=== PATIENT | male | born 1950 | race Two or more races ===

== ENCOUNTER 2019-10-14 06:48 | Inpatient (IN) | payer MEDICARE ==
[2019-10-14] VITALS (14 sets, daily range): BP systolic 87–124; BP diastolic 59–89
[~2019-10-14] VITALS: Ht 162.6 cm; Wt 66.8 kg
[~2019-10-14 06:48] MED LIST: ASPI325T11 PO; ATOR40TA59 PO; CLOP75TA PO; LISI-338 PO; METO25TA4 PO; NITR0.4T24 SL
[2019-10-14] MEDS ORDERED: LIDOCAINE 1% PF 2 ML VIAL. ONE (07:32)
[2019-10-14] MEDS ORDERED: IODIXANOL 320 MG/ML 100 ML VIAL. ONE (07:32)
[2019-10-14 07:37] LABS: HEMATOCRIT 37.7 % (39.0-53.0); HEMOGLOBIN 12.5 g/dL (13.0-17.5); RED BLOOD COUNT 4.16 x10^6/uL (4.30-5.70); RED CELL DISTRIBUTION WIDTH 13.3 % (11.5-14.5); WHITE BLOOD COUNT 11.2 x10^3/uL (4.0-11.0)
[2019-10-14] MEDS ORDERED: IPRATRPIUM/ALBUTEROL 0.5/2.5MG 3 ML NEBU. NEB ONE (07:45)
[2019-10-14 07:48] LABS: CALCIUM 8.3 mg/dL (8.5-10.1); CREATININE 0.8 mg/dL (0.7-1.3); GFR 95.8; POTASSIUM 4.1 mmol/L (3.5-5.1); PROTHROMBIN TIME PATIENT 13.7 SEC (11.7-14.0)
[2019-10-14] MEDS ORDERED: HEPARIN for IV BOLUS 10,000 UNIT/10 ML VIAL. ONE (07:57)
[2019-10-14] MEDS ORDERED: NITROGLYCERIN 200 MCG/2 ML SYRINGE FOR CATH/VASC LAB. ONE (07:57)
[2019-10-14] MEDS ORDERED: VERAPAMIL 5 MG/2 ML VIAL. ONE (07:57)
[2019-10-14] MEDS ORDERED: fentaNYL PF VIAL 100 MCG/2 ML VIAL ONE (07:57)
[2019-10-14] MEDS ORDERED: MIDAZOLAM HCL/PF 2 MG/2 ML VIAL. ONE (07:57)
[2019-10-14] MEDS ORDERED: NITROGLYCERIN 200 MCG/2 ML SYRINGE FOR CATH/VASC LAB. IART ONE (08:00)
[2019-10-14] MEDS ORDERED: MIDAZOLAM HCL/PF 2 MG/2 ML VIAL. IV ONE (08:00)
[2019-10-14] MEDS ORDERED: IODIXANOL 320 MG/ML 100 ML VIAL. IART ONE (08:00)
[2019-10-14] MEDS ORDERED: VERAPAMIL 5 MG/2 ML VIAL. IART ONE (08:00)
[2019-10-14] MEDS ORDERED: LIDOCAINE 1% PF 2 ML VIAL. INJ ONE (08:00)
[2019-10-14] MEDS ORDERED: fentaNYL PF VIAL 100 MCG/2 ML VIAL IV ONE (08:00)
[2019-10-14] MEDS ORDERED: HEPARIN for IV BOLUS 10,000 UNIT/10 ML VIAL. IART ONE (08:00)
[2019-10-14] MEDS ORDERED: CONTRAST GIVEN. MC PRN (08:15)
[2019-10-14] MEDS ORDERED: BIVALIRUDIN 250 MG VIAL. IV ONE ×2 (08:50→09:15)
[2019-10-14] MEDS: IV 1/2 NORMAL SALINE 1,000 ML IV SCH ×2 (09:39→19:39)
--- NOTE | 2019-10-14 09:39 | PDOC ---
MODERATE SEDATION ASSESSMENT RISKS/ALTERNATIVES Risks/Alternatives Risks and alternatives of this type of sedation and procedure discussed with: RISK/ALTERNATIVES: Patient H & P ON CHART H & P H & P on chart and reviewed for co-morbid conditions and appropriate labs. H&P ON CHART: Yes STATUS PREG STATUS ASSESSED: N/A MEDS/ALLERGIES REVIEWED Meds/Allergies Reviewed Medications and Allergies including time and route of recently administered narcotics and sedatives. MEDS/ALLERGIES REVIEWED: Yes ASA RATING ASA RATING: III AIRWAY ASSESSMENT Airway Assessment Airway patency, oral function limitations, presence of caps, crowns, dentures, partials, and ability to extend neck assessed. AIRWAY ASSESSMENT: Yes MALLAMPATI SCORE MALLAMPATI SCORE: II PRE-SEDATION ASSESSMENT PRE-SEDATION ASSESSMENT: Yes FAISAL DOWNS MD Oct 14, 2019 09:38
--- NOTE | 2019-10-14 09:52 | CARD ---
MR#: [id number] Date of Study: 10/14/2019 Ordering Physician: FAISAL EMANUEL, Referring Physician: FAISAL EMANUEL Tech: Miley No APPROVED REPORT Technologist: Miley No Nurse: Thea Winters RN Procedure(s) performed: Selective coronary angiography, successful PCI/drug eluting stents placement to the left circumflex and right coronary arteries fl time: 14.7 mins dose: 73 gy/cm2 contrast: 111 ml moderate sedation: 60 MINS INDICATION The indication(s) include : unstable angina , 69-year-old male recently underwent PCI/JAMAL to LAD in t he setting of acute anterior wall ST elevation myocardial infarction. He presented today for staged P CI/stents placement to left circumflex and right coronary arteries.. [facility] Clinical Frailty Scale [facility] Clinical Frailty Scale: Moderately Frail Heart Failure Heart Failure: No PROCEDURE NARRATIVE After explaining the risks, benefits and alternative options, informed consent was obtained from miky ent. Patient was brought to the cardiac Manager [facility] and his right wrist was prepped and draped in the us ual fashion after confirming a positive modified Filiberto's test. Arterial access was obtained in the located within [facility] radial artery and 6 Indonesian sheath was inserted. 6 Indonesian XB 3.5 guide catheter was used to engage the left main coronary artery and selective angiography was performed that confirmed the previously described 80% stenosis involving the mid segment of the left circumflex artery. This was crossed wit h a 0.014 inch FreedomPop Pro water guidewire and predilated with a 3.0 x 15 mm trek balloon. Subsequently , this was treated with a 3.0 x 22 mm resolute mely drug-eluting stent. Follow-up angiography showed resolution of the stenosis to 0% with DAKOTA-3 distal flow. Following this, the right coronary artery was engaged with a 6 Indonesian JR4 guide catheter and selectiv e angiography was performed that confirmed the previously described 80% stenosis involving the mid to distal segment of the right coronary artery. This was predilated with a 3.0 x 15 mm trek balloon and treated successfully with a 3.5 x 38 mm resolute mely drug-eluting stent. Follow-up angiorrhaphy oleg wed resolution of the stenosis to 0% with DAKOTA-3 distal flow. Patient tolerated the procedure well. H emostasis was achieved using TR band. There were no immediate complications DAKOTA Flow DAKOTA Flow (Pre-Intervention): DAKOTA-3 DAKOTA Flow (Post-Intervention): DAKOTA-3 Conclusion Successful PCI/drug eluting stents placement to the right coronary and left circumflex arteries. Recommendations 1. Aspirin 325 mg daily for one month followed by 81 mg daily 2. Plavix 75 mg daily for preferably one year 3. Cardiovascular risk factor modification 4. Cardiac rehabilitation referral Signed by : Faisal Emanuel, Electronically Approved : 10/14/2019 09:52:09
--- NOTE | 2019-10-14 11:58 | CONS ---
DATE OF CONSULTATION: 10/14/2019 ATTENDING PHYSICIAN: Dr. Emanuel. REASON FOR CONSULTATION: Hypoxia. HISTORY OF PRESENT ILLNESS: The patient is a 69-year-old who was hospitalized for a left heart catheterization on 09/27/2019. He had 3-vessel coronary artery disease. He had elevated left ventricular end-diastolic pressure of 40 from acute diastolic heart failure. The patient at that time also had a stent to LAD and was subsequently discharged. He was then readmitted today with 2 more stents that was performed on RCA and left circumflex. He was noted to be dyspneic during the procedure requiring 2 liters of oxygen. His chest x-ray from 09/27/2019 showed diffuse congestive heart failure. He has not had any followup x-ray since then. He does not speak Lithuanian. He does have a reported history of 30 plus tobacco use. Denies any chest pain at present. No cough. PAST MEDICAL HISTORY: History of 3-vessel coronary artery disease, history of diastolic heart failure. PAST SURGICAL HISTORY: Including left heart catheterization with 3-vessel coronary artery disease status post 3 stents. REVIEW OF SYSTEMS: Unable to obtain from the patient due to language barrier. ALLERGIES: None. MEDICATIONS: Reviewed as listed in the MRAD. SOCIAL HISTORY: Smoked for 30 years. PHYSICAL EXAMINATION: VITAL SIGNS: Reviewed. Blood pressure 104/74, afebrile, pulse ox 96% on 2 liters. NECK: Supple. LUNGS: With crackles at the bases. CARDIOVASCULAR: With a regular rate. ABDOMEN: Soft, nontender. EXTREMITIES: With no pitting edema. LABORATORY DATA: Reviewed. BUN and creatinine 15 and 0.8. IMPRESSION: 1. Acute hypoxic respiratory failure secondary to acute on chronic diastolic heart failure. 2. The patient with 3-vessel coronary artery disease, status post stent initially to LAD on 09/27/2019 and now stent placed to RCA and circumflex. 3. Mild cardiomyopathy with an EF of 45%. 4. Possible chronic obstructive pulmonary disease. 5. Abnormal chest x-ray on 09/27/2019 consistent with congestive heart failure. RECOMMENDATIONS: 1. Discussed with the nurse. Continue present oxygen. 2. We will obtain a stat chest x-ray. 3. The patient will need diuresis. 4. I have ordered him to discontinue IV fluids. 5. Follow Cardiology recommendation. 6. Discussed with RN and the patient's . JOSE BEATTY MD DR: Cathy JOB#: [id number] / [id number]
[2019-10-14] MEDS ORDERED: FUROSEMIDE 20 MG/2 ML VIAL. IVP ONE (12:00)
--- NOTE | 2019-10-14 12:00 | NUR ---
Admission: Patient speaks Estonian. Son Saman at bedside at time of admission and did all translating. Saman is fluent in Estonian and Vietnamese. Son translated for patient. Reviewing all home medications, admission questions, orienting patient to the room. Also reviewed cardiac cath precautions, bleeding risk and TR band. Patient son, patient and verbalized understanding. Additional people who can translate for patient. Jaime [phone] Pastor Ornelas [phone] [facility] wafer production lead worker Asha Dorseyg [phone]
--- NOTE | 2019-10-14 12:23 | RAD ---
Portable chest x-ray compared to similar exam dated 09/27/2019 for CHF, shortness of air. FINDINGS: There are bilateral apical airspace infiltrates, much worse on the right than the left. This is on a background of fine reticulonodular interstitial thickening diffusely. More focal consolidation the right medial lung base which appears right heart border and may reflect atelectasis or pneumonic infiltrate. No pleural effusions. IMPRESSION: 1. New biapical infiltrates, right greater than left, on a background of coarse chronic interstitial changes. Findings are concerning for acute infection superimposed on chronic fibrotic interstitial lung disease. 2. New dense consolidation in the right medial lobe, atelectasis versus pneumonic infiltrate. Electronically signed by: Dima Hunt MD (10/14/2019 12:21 PM) [id number]
[2019-10-14] MEDS ORDERED: PIP/TAZO PER PHARMACY MC PRN (12:45)
[2019-10-14] MEDS: PIPERACILLIN/TAZOBACTAM 4.5 GM in IV NORMAL SALINE 100ML 100 ML IV SCH ×3 (13:18→23:36)
--- NOTE | 2019-10-14 16:00 | NUR ---
TR band: Upon transfer from manager cath lab some blood under TR band 2mls added by manager cath lab nurse. No additional bleeding noted. All air removed by 1320. TR band removed at 1600. Arm board in place. Patient verbalized understanding of bleeding precautions.
[2019-10-14] MEDS: IPRATRPIUM/ALBUTEROL 0.5/2.5MG 3 ML NEBU. NEB SCH ×2 (17:37→20:00)
[2019-10-14] MEDS: ATORVASTATIN CALCIUM 40 MG TABLET. PO SCH (20:56)
[2019-10-14] MEDS: METOPROLOL TART IMMED RELEASE 25 MG TABLET. PO SCH (22:52)
[2019-10-15 02:40] VITALS: BP 76/52
[2019-10-15] MEDS: PIPERACILLIN/TAZOBACTAM 4.5 GM in IV NORMAL SALINE 100ML 100 ML IV SCH ×4 (05:58→23:50)
[2019-10-15 07:00] VITALS: BP 91/55
[2019-10-15] MEDS: IPRATRPIUM/ALBUTEROL 0.5/2.5MG 3 ML NEBU. NEB SCH ×4 (07:17→20:09)
[2019-10-15] MEDS: ASPIRIN ENTERIC COATED 325 MG TABLET.DR. PO SCH (08:54)
[2019-10-15] MEDS: CLOPIDOGREL BISULFATE 75 MG TABLET PO SCH (08:54)
[2019-10-15] MEDS: METOPROLOL TART IMMED RELEASE 25 MG TABLET. PO SCH ×2 (08:55→20:19)
[2019-10-15 10:52] VITALS: BP 90/69
--- NOTE | 2019-10-15 11:27 | RAD ---
PORTABLE CHEST 1V 10/15/2019 5:00 AM INDICATION: Shortness of air, pneumonia COMPARISON: 10/14/2019 TECHNIQUE: Portable frontal view of the chest is provided. FINDINGS: The cardiomediastinal silhouette is similar in appearance. Similar interstitial and alveolar airspace disease in the right upper lobe. Diffuse interstitial changes appears similar. No new airspace consolidation. There are no significant pleural effusions. There is no pulmonary vascular congestion. No pneumothorax. IMPRESSION: Aeration of the lungs appears similar to the prior examination. Electronically signed by: Charo Mejia MD (10/15/2019 11:24 AM) [id number]
--- NOTE | 2019-10-15 11:32 | PDOC ---
MOE COLINDRES LIBRARY ASSISTANT 10/15/19 1132: CARDIO Progress Notes Date and Time Date of Service 10/15/2019 Time of Evaluation 1100 Subjective Subjective: No Chest Pain, No shortness of breath, No Palpitations Vitals Vitals Vital Signs Date Time Temp Pulse Resp B/P (MAP) Pulse Ox O2 Delivery O2 Flow Rate FiO2 10/15/19 11:01 98 Nasal Cannula 2.0 10/15/19 10:52 97.5 90 24 90/69 (76) 97.5 Weight Weight [ ] Input and Output Intake and Output Intake and Output 10/15/19 07:00 Intake Total 400 ml Output Total 900 ml Balance -500 ml Intake Oral 400 ml Output Urine Total 900 ml Physical Exam HEENT: Neck Supple W Full Motion Chest: Symmetric LUNGS: Other (diminished bases) Heart: S1S2, RRR (SR) Abdomen: Soft N/T Extremities: No Calf Tenderness Neurology: alert, oriented, follow commands Other Exams right wrist arteriotomy site intact, no erythema or swelling, neurovascular status to right hand intact Assessment Assessment 1. 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 This time in for staged PCI/JAMAL to LCx/RCA as planned, stable 2. Mild acute systolic CHF: EF noted at 45%, appears compensated. lasix received yesterday 3. Possible aspiration: Infiltrates per CXR, notable for significant n/v post his STEMI at home per son. 4. Tobaccoism with likely COPD 5. HTN: BP marginally low currently 6. HLP 7. Mild valvular insufficiency: AI, TR/MR Recommendations 1. May hold metoprolol per BP trend. He will need ACEi as well moving forward if BP trend is adequate. Continue statin 2. Cardiac rehab 3. ECASA 325 for 1 month then 81 mg thereafter. Plavix. 4. Smoking cessation. Discussed treatment plan with son relaying to pt as his language is Luxembourger 5. Appreciate pulmonary input, antibiotic regimen per Dr. Solorio 6. Will transfer primary care to hospitalist group. BMP, Mg today 7. Follow up with Dr. Downs on 11/27 at 2 PM FAISAL DOWNS MD 10/15/19 1518: CARDIO Progress Notes Assessment Assessment Patient seen and examined. Agree with LAW INSTRUCTOR's assessment and plan. s/p PCI/JAMAL to LCx/RCA, stable and chest pain-free Appreciate pulmonary input - continue current management for possible aspiration pneumonia per the recommendations Follow-up with our office as scheduled MOE COLINDRES APRN Oct 15, 2019 11:32 FAISAL DOWNS MD Oct 15, 2019 15:18
--- NOTE | 2019-10-15 12:15 | NUR ---
SS following for discharge planning. SS reviewed pt chart. Pt is from home with spouse and is currently requiring oxygen. SS will continue to follow for discharge planning.
--- NOTE | 2019-10-15 12:27 | PDOC ---
PULMONARY PROGRESS NOTES Subjective better less SOA Vitals Vital Signs Date Time Temp Pulse Resp B/P (MAP) Pulse Ox O2 Delivery O2 Flow Rate FiO2 10/15/19 11:01 98 Nasal Cannula 2.0 10/15/19 10:52 97.5 90 24 90/69 (76) 97.5 General: Alert, No acute distress Lungs: Clear Cardiovascular: S1 Abdomen: Soft Neuro Exam: Alert Extremities: No Edema Skin: Warm Labs Laboratory Tests Test 10/14/19 07:21 White Blood Count 11.2 x10^3/uL (4.0-11.0) Red Blood Count 4.16 x10^6/uL (4.30-5.70) Hemoglobin 12.5 g/dL (13.0-17.5) Hematocrit 37.7 % (39.0-53.0) Mean Corpuscular Volume 91 fL (79-100) Mean Corpuscular Hemoglobin 30 pg (25-35) Mean Corpuscular Hemoglobin Concent 33 g/dL (31-37) Red Cell Distribution Width 13.3 % (11.5-14.5) Platelet Count 286 x10^3/uL (140-400) Prothrombin Time 13.7 SEC (11.7-14.0) Prothromb Time International Ratio 1.1 (0.8-1.1) Activated Partial Thromboplast Time 34 SEC (24-38) Sodium Level 142 mmol/L (136-145) Potassium Level 4.1 mmol/L (3.5-5.1) Chloride Level 105 mmol/L (98-107) Carbon Dioxide Level 25 mmol/L (21-32) Anion Gap 12 (6-14) Blood Urea Nitrogen 15 mg/dL (8-26) Creatinine 0.8 mg/dL (0.7-1.3) Estimated GFR (Cockcroft-Gault) 95.8 Glucose Level 120 mg/dL (70-99) Calcium Level 8.3 mg/dL (8.5-10.1) Medications Active Scripts Medications Dose Route/Sig Max Daily Dose Days Date Category Metoprolol Tartrate 25 Mg Tablet 12.5 Mg PO BID 09/28/19 Rx Aspirin Ec (Aspirin) 325 Mg Tablet.dr 325 Mg PO DAILYWBKFT 09/28/19 Rx Atorvastatin Calcium 40 Mg Tablet 40 Mg PO QHS 12/7/19 Rx Nitrostat (Nitroglycerin) 0.4 Mg Tab.subl 0.4 Mg SL PRN Q5MIN PRN 09/28/19 Rx Clopidogrel (Clopidogrel Bisulfate) 75 Mg Tablet 75 Mg PO DAILYWBKFT 09/28/19 Rx Impression . 1. Acute hypoxic respiratory failure secondary to acute on chronic diastolic heart failure and suspect RUL aspiration pneumonia 2. The patient with 3-vessel coronary artery disease, status post stent initially to LAD on 09/27/2019 and now stent placed to RCA and circumflex. 3. Mild cardiomyopathy with an EF of 45%. 4. Possible chronic obstructive pulmonary disease. 5. Abnormal chest x-ray Plan . 1. Discussed with the nurse. Continue present oxygen. 2. We will obtain ct chest , cxr with no change 3. diuresis. 4. Zosyn 5. Follow Cardiology recommendation. 6. Discussed with RN and the patient's . JOSE BEATTY MD Oct 15, 2019 12:26
--- NOTE | 2019-10-15 12:36 | PDOC ---
PROGRESS NOTES History of Present Illness History of Present Illness impression Assessment 1. 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 This time in for staged PCI/JAMAL to LCx/RCA as planned, stable 2. Mild acute systolic CHF: EF noted at 45%, 3. Possible aspiration: Infiltrates per CXR, notable for significant n/v post his STEMI at home per son. 4. Tobaccoism with likely COPD, stopped Moderate to large right pleural effusion and tiny left pleural effusion along with pulmonary interstitial edema. Bilateral multilobar pulmonary opacities are present. Given the presence of interstitial edema, these opacities most likely represent pulmonary alveolar edema. Superimposed multilobar pneumonia is not excluded. Follow-up CT imaging in 3 months is advised per Fleischner guidelines to document that these opacities resolve over time to exclude the possibility of an underlying opacity from nonmasslike malignancy or pneumonitis.. Mediastinal and hilar adenopathy. 5. HTN: BP marginally low currently 6. HLP 7. Mild valvular insufficiency: AI, TR/MR plan admit 1. metoprolol per BP trend. He will need ACEi as well moving forward if BP trend is adequate. Continue statin 2. Cardiac rehab 3. ECASA 325 for 1 month then 81 mg thereafter. Plavix. 4. Smoking cessation. Discussed permanent 5. pulmonary input, antibiotic regimen per evgeny Sequeira 6. transfer to hospitalist group. from cards today BMP, Mg today 7. Follow up with Dr. Emanuel on 11/27 at 2 PM 37 min pt exam, chart review, > 50% of time spent with exam, chart review, pt care coordination Vitals Vitals Vital Signs Date Time Temp Pulse Resp B/P (MAP) Pulse Ox O2 Delivery O2 Flow Rate FiO2 10/15/19 11:01 98 Nasal Cannula 2.0 10/15/19 10:52 97.5 90 24 90/69 (76) 97.5 Physical Exam General: Alert, Oriented X3, Cooperative, No acute distress Heart: Regular rate Lungs: Clear, Crackles Abdomen: Normal bowel sounds, Soft, No tenderness, No hepatosplenomegaly Extremities: No clubbing, No cyanosis, No edema Labs [facility]S [facility]: [id number] : 1950 LOCATION: [facility] AGE: 69 SEX: M EXAM STATUS: ADM IN ORD. PHYSICIAN: JOSE BEATTY MD REASON: chf vs pna, SHORT OF AIR PROCEDURE: CT CHEST WO CONTRAST CT chest without contrast PQRS statement: CT scans at this facility use dose reduction including either automated exposure control, iterative reconstructions, and /or weight based radiation dosing via mA and kV modification when appropriate to reduce radiation dose to as low as reasonably achievable. HISTORY: Congestive heart failure, pneumonia, shortness of breath. COMPARISON: Chest x-ray October 15, 2019. FINDINGS: Ectasia ascending thoracic aorta diameter 3.8 cm. Mild cardiomegaly. Extensive bilateral coronary calcified plaque, and presumed density from coronary stents as well. Pulmonary vessels and esophagus are unremarkable. There is mediastinal adenopathy largest distal paratracheal lymph node measures 2.1 x 1.6 cm. There is fullness of the hitesh could be due to a combination of prominent pulmonary vessels as well as mild enlarged hilar lymph nodes, characterization limited by absence of contrast. Tiny subcentimeter dependent left pleural effusion. There is a moderate to large right pleural effusion with an AP thickness of 6.3 cm. There is smooth paraseptal interstitial thickening typical of interstitial edema bilaterally. There are also bilateral multilobar opacities with a crazy paving pattern the largest and densest of which is at the right upper lobe but with scattered bilateral upper and lower lung zone opacities present. Bones are unremarkable. IMPRESSION: 1. Moderate to large right pleural effusion and tiny left pleural effusion along with pulmonary interstitial edema. 2. Bilateral multilobar pulmonary opacities are present. Given the presence of interstitial edema, these opacities most likely represent pulmonary alveolar edema. Superimposed multilobar pneumonia is not excluded. Follow-up CT imaging in 3 months is advised per Fleischner guidelines to document that these opacities resolve over time to exclude the possibility of an underlying opacity from nonmasslike malignancy or pneumonitis. 3. Mediastinal and hilar adenopathy. Electronically signed by: Nav Sal MD (10/15/2019 2:56 PM) [id number] Comment Review of Relevant I have reviewed the following items bailee (where applicable) has been applied. Labs Laboratory Tests Test 10/14/19 07:21 White Blood Count 11.2 x10^3/uL (4.0-11.0) Red Blood Count 4.16 x10^6/uL (4.30-5.70) Hemoglobin 12.5 g/dL (13.0-17.5) Hematocrit 37.7 % (39.0-53.0) Mean Corpuscular Volume 91 fL (79-100) Mean Corpuscular Hemoglobin 30 pg (25-35) Mean Corpuscular Hemoglobin Concent 33 g/dL (31-37) Red Cell Distribution Width 13.3 % (11.5-14.5) Platelet Count 286 x10^3/uL (140-400) Prothrombin Time 13.7 SEC (11.7-14.0) Prothromb Time International Ratio 1.1 (0.8-1.1) Activated Partial Thromboplast Time 34 SEC (24-38) Sodium Level 142 mmol/L (136-145) Potassium Level 4.1 mmol/L (3.5-5.1) Chloride Level 105 mmol/L (98-107) Carbon Dioxide Level 25 mmol/L (21-32) Anion Gap 12 (6-14) Blood Urea Nitrogen 15 mg/dL (8-26) Creatinine 0.8 mg/dL (0.7-1.3) Estimated GFR (Cockcroft-Gault) 95.8 Glucose Level 120 mg/dL (70-99) Calcium Level 8.3 mg/dL (8.5-10.1) Medications Current Medications Iodixanol (Visipaque 320) 100 ml STK-MED ONCE .ROUTE ; Start 10/14/19 at 07:32; Stop 10/14/19 at 07:32; Status DC Heparin Sodium/ Sodium Chloride 1,000 ml @ As Directed STK-MED ONCE .ROUTE ; Start 10/14/19 at 07:32; Stop 10/14/19 at 07:33; Status DC Lidocaine HCl (Xylocaine-Mpf 1% 2ml Vial) 2 ml STK-MED ONCE .ROUTE ; Start 10/14/19 at 07:32; Stop 10/14/19 at 07:33; Status DC Albuterol/ Ipratropium (Duoneb) 3 ml 1X ONCE NEB Last administered on 10/14/19at 08:06; Start 10/14/19 at 07:45; Stop 10/14/19 at 07:47; Status DC Fentanyl Citrate (Fentanyl 2ml Vial) 100 mcg STK-MED ONCE .ROUTE ; Start 10/14/19 at 07:57; Stop 10/14/19 at 07:57; Status DC Midazolam HCl (Versed) 2 mg STK-MED ONCE .ROUTE ; Start 10/14/19 at 07:57; Stop 10/14/19 at 07:58; Status DC Heparin Sodium (Porcine) (Heparin Sodium) 10,000 unit STK-MED ONCE .ROUTE ; Start 10/14/19 at 07:57; Stop 10/14/19 at 07:58; Status DC Verapamil HCl (Verapamil) 5 mg STK-MED ONCE .ROUTE ; Start 10/14/19 at 07:57; Stop 10/14/19 at 07:58; Status DC Nitroglycerin (Nitroglycerin) 200 mcg STK-MED ONCE .ROUTE ; Start 10/14/19 at 07:57; Stop 10/14/19 at 07:58; Status DC Nitroglycerin (Nitroglycerin) 200 mcg 1X ONCE IART Last administered on 10/14/19at 08:00; Start 10/14/19 at 08:00; Stop 10/14/19 at 08:03; Status DC Verapamil HCl (Verapamil) 2.5 mg 1X ONCE IART Last administered on 10/14/19at 08:47; Start 10/14/19 at 08:00; Stop 10/14/19 at 08:03; Status DC Heparin Sodium (Porcine) (Heparin Sodium) 2,500 unit 1X ONCE IART Last administered on 10/14/19at 08:00; Start 10/14/19 at 08:00; Stop 10/14/19 at 08:03; Status DC Heparin Sodium/ Sodium Chloride (HEPARIN for ARTERIAL LINE FLUSH) 1,000 unit 1X ONCE IART Last administered on 10/14/19at 08:00; Start 10/14/19 at 08:00; Stop 10/14/19 at 08:03; Status DC Heparin Sodium/ Sodium Chloride (HEPARIN for ARTERIAL LINE FLUSH) 1,000 unit 1X ONCE IART Last administered on 10/14/19at 08:00; Start 10/14/19 at 08:00; Stop 10/14/19 at 08:03; Status DC Midazolam HCl (Versed) 2 mg 1X ONCE IV Last administered on 10/14/19at 08:00; Start 10/14/19 at 08:00; Stop 10/14/19 at 08:03; Status DC Fentanyl Citrate (Fentanyl 2ml Vial) 100 mcg 1X ONCE IV Last administered on 10/14/19at 08:00; Start 10/14/19 at 08:00; Stop 10/14/19 at 08:03; Status DC Iodixanol (Visipaque 320) 100 ml 1X ONCE IART Last administered on 10/14/19 08:00; Start 10/14/19 at 08:00; Stop 10/14/19 at 08:03; Status DC Lidocaine HCl (Xylocaine-Mpf 1% 2ml Vial) 2 ml 1X ONCE INJ Last administered on 10/14/19 08:47; Start 10/14/19 at 08:00; Stop 10/14/19 at 08:03; Status DC Info (CONTRAST GIVEN -- Rx MONITORING) 1 each PRN DAILY PRN MC SEE COMMENTS; Start 10/14/19 at 08:15; Stop 10/16/19 at 08:14 Bivalirudin (Angiomax) 250 mg STK-MED ONCE IV ; Start 10/14/19 at 08:50; Stop 10/14/19 at 08:50; Status DC Bivalirudin (Angiomax) 250 mg 1X ONCE IV Last administered on 10/14/19at 09:09; Start 10/14/19 at 09:15; Stop 10/14/19 at 09:16; Status DC Sodium Chloride 1,000 ml @ 100 mls/hr Q10H IV ; Start 10/14/19 at 09:39; Stop 10/15/19 at 05:46; Status DC Aspirin (Ecotrin) 325 mg DAILYWBKFT PO Last administered on 10/15/19 08:54; Start 10/15/19 at 08:00 Clopidogrel Bisulfate (Plavix) 75 mg DAILYWBKFT PO Last administered on 10/15/19 08:54; Start 10/15/19 at 08:00 Atorvastatin Calcium (Lipitor) 40 mg QHS PO Last administered on 10/14/19at 20:56; Start 10/14/19 at 21:00 Metoprolol Tartrate (Lopressor) 12.5 mg BID PO Last administered on 10/15/19 08:55; Start 10/14/19 at 21:00 Furosemide (Lasix) 20 mg 1X ONCE IVP Last administered on 10/14/19at 12:14; Start 10/14/19 at 12:00; Stop 10/14/19 at 12:01; Status DC Piperacillin Sod/ Tazobactam Sod (Zosyn Per Pharmacy) 1 each PRN DAILY PRN MC SEE COMMENTS; Start 10/14/19 at 12:45 Piperacillin Sod/ Tazobactam Sod 4.5 gm/Sodium Chloride 100 ml @ 200 mls/hr Q6HRS IV Last administered on 10/15/19at 12:29; Start 10/14/19 at 13:00 Albuterol/ Ipratropium (Duoneb) 3 ml RTQID NEB Last administered on 10/15/19at 11:00; Start 10/14/19 at 16:15 Lactobacillus Rhamnosus (Culturelle) 1 cap BID PO ; Start 10/15/19 at 21:00 Active Scripts Active Metoprolol Tartrate 25 Mg Tablet 12.5 Mg PO BID Aspirin Ec (Aspirin) 325 Mg Tablet.dr 325 Mg PO DAILYWBKFT Atorvastatin Calcium 40 Mg Tablet 40 Mg PO QHS Nitrostat (Nitroglycerin) 0.4 Mg Tab.subl 0.4 Mg SL PRN Q5MIN PRN Clopidogrel (Clopidogrel Bisulfate) 75 Mg Tablet 75 Mg PO DAILYWBKFT Vitals/I & O Vital Sign - Last 24 Hours 10/14/19 10/14/19 10/14/19 10/14/19 13:30 15:33 17:37 19:13 Temp 97.9 97.7 97.9 97.7 Pulse 82 78 86 Resp 16 16 B/P (MAP) 94/82 (86) 95/68 (77) 87/59 (68) Pulse Ox 94 97 96 O2 Delivery Nasal Cannula Room Air Nasal Cannula O2 Flow Rate 2.0 2.0 10/14/19 10/14/19 10/14/19 10/14/19 19:45 20:15 22:52 23:02 Temp 97.9 97.9 Pulse 90 90 Resp 20 B/P (MAP) 102/71 102/71 (81) Pulse Ox 97 O2 Delivery Nasal Cannula Nasal Cannula Nasal Cannula O2 Flow Rate 2.0 2.0 2.0 10/15/19 10/15/19 10/15/1919 02:40 07:00 07:18 08:00 Temp 98.0 97.4 98.0 97.4 Pulse 86 82 Resp 16 24 B/P (MAP) 76/52 (60) 91/55 (67) Pulse Ox 95 97 95 O2 Delivery Nasal Cannula Nasal Cannula Nasal Cannula Nasal Cannula O2 Flow Rate 2.0 2.0 2.0 2.0 10/15/19 10/15/19 10/15/19 08:55 10:52 11:01 Temp 97.5 97.5 Pulse 86 90 Resp 24 B/P (MAP) 94/69 90/69 (76) Pulse Ox 97 98 O2 Delivery Nasal Cannula Nasal Cannula O2 Flow Rate 2.0 2.0 Intake and Output 10/14/19 10/14/19 10/15/19 15:00 23:00 07:00 Intake Total 200 ml 200 ml Output Total 250 ml 650 ml Balance -250 ml -450 ml 200 ml CODY SONI MD Oct 15, 2019 12:36
[2019-10-15 12:50] LABS: CALCIUM 8.3 mg/dL (8.5-10.1); CREATININE 0.8 mg/dL (0.7-1.3); GFR 95.8; MAGNESIUM 2.2 mg/dL (1.8-2.4); POTASSIUM 3.8 mmol/L (3.5-5.1)
--- NOTE | 2019-10-15 14:59 | RAD ---
CT chest without contrast PQRS statement: CT scans at this facility use dose reduction including either automated exposure control, iterative reconstructions, and /or weight based radiation dosing via mA and kV modification when appropriate to reduce radiation dose to as low as reasonably achievable. HISTORY: Congestive heart failure, pneumonia, shortness of breath. COMPARISON: Chest x-ray October 15, 2019. FINDINGS: Ectasia ascending thoracic aorta diameter 3.8 cm. Mild cardiomegaly. Extensive bilateral coronary calcified plaque, and presumed density from coronary stents as well. Pulmonary vessels and esophagus are unremarkable. There is mediastinal adenopathy largest distal paratracheal lymph node measures 2.1 x 1.6 cm. There is fullness of the hitesh could be due to a combination of prominent pulmonary vessels as well as mild enlarged hilar lymph nodes, characterization limited by absence of contrast. Tiny subcentimeter dependent left pleural effusion. There is a moderate to large right pleural effusion with an AP thickness of 6.3 cm. There is smooth paraseptal interstitial thickening typical of interstitial edema bilaterally. There are also bilateral multilobar opacities with a crazy paving pattern the largest and densest of which is at the right upper lobe but with scattered bilateral upper and lower lung zone opacities present. Bones are unremarkable. IMPRESSION: 1. Moderate to large right pleural effusion and tiny left pleural effusion along with pulmonary interstitial edema. 2. Bilateral multilobar pulmonary opacities are present. Given the presence of interstitial edema, these opacities most likely represent pulmonary alveolar edema. Superimposed multilobar pneumonia is not excluded. Follow-up CT imaging in 3 months is advised per Fleischner guidelines to document that these opacities resolve over time to exclude the possibility of an underlying opacity from nonmasslike malignancy or pneumonitis. 3. Mediastinal and hilar adenopathy. Electronically signed by: Nav Sal MD (10/15/2019 2:56 PM) [id number]
[2019-10-15 15:00] VITALS: BP 98/70
--- NOTE | 2019-10-15 15:07 | PDOC1 ---
History and Physical Date of Admission Date of Admission DATE: 10/15/19 TIME: 15:07 Identification/Chief Complaint Chief Complaint chest pain, poa////Successful PCI/drug eluting stents placement to the right coronary and left circumflex arteries. asked to see for med mgt Past Medical History Cardiovascular: No pertinent hx, Hyperlipidemia Pulmonary: No pertinent hx Heme/Onc: No pertinent hx Psych: Addictions Endocrine: No pertinent hx Past Surgical History Past Surgical History: No pertinent history Family History Family History: Chronic Bronchitis, High Cholestrol Social History Smoke: <1 pack per day ALCOHOL: other Drugs: None Current Medications Current Medications Current Medications Iodixanol (Visipaque 320) 100 ml STK-MED ONCE .ROUTE ; Start 10/14/19 at 07:32; Stop 10/14/19 at 07:32; Status DC Heparin Sodium/ Sodium Chloride 1,000 ml @ As Directed STK-MED ONCE .ROUTE ; Start 10/14/19 at 07:32; Stop 10/14/19 at 07:33; Status DC Lidocaine HCl (Xylocaine-Mpf 1% 2ml Vial) 2 ml STK-MED ONCE .ROUTE ; Start 10/14/19 at 07:32; Stop 10/14/19 at 07:33; Status DC Albuterol/ Ipratropium (Duoneb) 3 ml 1X ONCE NEB Last administered on 10/14/19at 08:06; Start 10/14/19 at 07:45; Stop 10/14/19 at 07:47; Status DC Fentanyl Citrate (Fentanyl 2ml Vial) 100 mcg STK-MED ONCE .ROUTE ; Start 10/14/19 at 07:57; Stop 10/14/19 at 07:57; Status DC Midazolam HCl (Versed) 2 mg STK-MED ONCE .ROUTE ; Start 10/14/19 at 07:57; Stop 10/14/19 at 07:58; Status DC Heparin Sodium (Porcine) (Heparin Sodium) 10,000 unit STK-MED ONCE .ROUTE ; Start 10/14/19 at 07:57; Stop 10/14/19 at 07:58; Status DC Verapamil HCl (Verapamil) 5 mg STK-MED ONCE .ROUTE ; Start 10/14/19 at 07:57; Stop 10/14/19 at 07:58; Status DC Nitroglycerin (Nitroglycerin) 200 mcg STK-MED ONCE .ROUTE ; Start 10/14/19 at 07:57; Stop 10/14/19 at 07:58; Status DC Nitroglycerin (Nitroglycerin) 200 mcg 1X ONCE IART Last administered on 10/14/19at 08:00; Start 10/14/19 at 08:00; Stop 10/14/19 at 08:03; Status DC Verapamil HCl (Verapamil) 2.5 mg 1X ONCE IART Last administered on 10/14/19at 08:47; Start 10/14/19 at 08:00; Stop 10/14/19 at 08:03; Status DC Heparin Sodium (Porcine) (Heparin Sodium) 2,500 unit 1X ONCE IART Last administered on 10/14/19at 08:00; Start 10/14/19 at 08:00; Stop 10/14/19 at 08:03; Status DC Heparin Sodium/ Sodium Chloride (HEPARIN for ARTERIAL LINE FLUSH) 1,000 unit 1X ONCE IART Last administered on 10/14/19at 08:00; Start 10/14/19 at 08:00; Stop 10/14/19 at 08:03; Status DC Heparin Sodium/ Sodium Chloride (HEPARIN for ARTERIAL LINE FLUSH) 1,000 unit 1X ONCE IART Last administered on 10/14/19at 08:00; Start 10/14/19 at 08:00; Stop 10/14/19 at 08:03; Status DC Midazolam HCl (Versed) 2 mg 1X ONCE IV Last administered on 10/14/19 08:00; Start 10/14/19 at 08:00; Stop 10/14/19 at 08:03; Status DC Fentanyl Citrate (Fentanyl 2ml Vial) 100 mcg 1X ONCE IV Last administered on 10/14/19at 08:00; Start 10/14/19 at 08:00; Stop 10/14/19 at 08:03; Status DC Iodixanol (Visipaque 320) 100 ml 1X ONCE IART Last administered on 10/14/19at 08:00; Start 10/14/19 at 08:00; Stop 10/14/19 at 08:03; Status DC Lidocaine HCl (Xylocaine-Mpf 1% 2ml Vial) 2 ml 1X ONCE INJ Last administered on 10/14/19at 08:47; Start 10/14/19 at 08:00; Stop 10/14/19 at 08:03; Status DC Info (CONTRAST GIVEN -- Rx MONITORING) 1 each PRN DAILY PRN MC SEE COMMENTS; Start 10/14/19 at 08:15; Stop 10/16/19 at 08:14 Bivalirudin (Angiomax) 250 mg STK-MED ONCE IV ; Start 10/14/19 at 08:50; Stop 10/14/19 at 08:50; Status DC Bivalirudin (Angiomax) 250 mg 1X ONCE IV Last administered on 10/14/19at 09:09; Start 10/14/19 at 09:15; Stop 10/14/19 at 09:16; Status DC Sodium Chloride 1,000 ml @ 100 mls/hr Q10H IV ; Start 10/14/19 at 09:39; Stop 10/15/19 at 05:46; Status DC Aspirin (Ecotrin) 325 mg DAILYWBKFT PO Last administered on 10/15/19at 08:54; Start 10/15/19 at 08:00 Clopidogrel Bisulfate (Plavix) 75 mg DAILYWBKFT PO Last administered on 10/15/19at 08:54; Start 10/15/19 at 08:00 Atorvastatin Calcium (Lipitor) 40 mg QHS PO Last administered on 10/14/19at 20:56; Start 10/14/19 at 21:00 Metoprolol Tartrate (Lopressor) 12.5 mg BID PO Last administered on 10/15/19at 08:55; Start 10/14/19 at 21:00 Furosemide (Lasix) 20 mg 1X ONCE IVP Last administered on 10/14/19at 12:14; Start 10/14/19 at 12:00; Stop 10/14/19 at 12:01; Status DC Piperacillin Sod/ Tazobactam Sod (Zosyn Per Pharmacy) 1 each PRN DAILY PRN MC SEE COMMENTS; Start 10/14/19 at 12:45 Piperacillin Sod/ Tazobactam Sod 4.5 gm/Sodium Chloride 100 ml @ 200 mls/hr Q6HRS IV Last administered on 10/15/19at 12:29; Start 10/14/19 at 13:00 Albuterol/ Ipratropium (Duoneb) 3 ml RTQID NEB Last administered on 10/15/19at 11:00; Start 10/14/19 at 16:15 Lactobacillus Rhamnosus (Culturelle) 1 cap BID PO ; Start 10/15/19 at 21:00 Active Scripts Active Metoprolol Tartrate 25 Mg Tablet 12.5 Mg PO BID Aspirin Ec (Aspirin) 325 Mg Tablet.dr 325 Mg PO DAILYWBKFT Atorvastatin Calcium 40 Mg Tablet 40 Mg PO QHS Nitrostat (Nitroglycerin) 0.4 Mg Tab.subl 0.4 Mg SL PRN Q5MIN PRN Clopidogrel (Clopidogrel Bisulfate) 75 Mg Tablet 75 Mg PO DAILYWBKFT Allergies Allergies: Coded Allergies: No Known Drug Allergies (Unverified , 09/27/19) ROS General: No: Chills, Night Sweats, Fatigue, Malaise, Appetite, Other PSYCHOLOGICAL ROS: No: Anxiety, Behavioral Disorder, Concentration difficultie, Decreased libido, Depression, Disorientation, Hallucinations, Hostility, Irri tablity, Memory difficulties, Mood Swings, Obsessive thoughts, Physical abuse, Sexual abuse, Sleep disturbances, Suicidal ideation, Other Hematological and Lymphatic: No: Bleeding Problems, Blood Clots, Blood Transfusions, Brusing, Night Sweats, Pallor, Swollen Lymph Nodes, Other ENDOCRINE: No: Breast Changes, Galactorrhea, Hair Pattern Changes, Hot Flashes, Malaise/lethargy, Mood Swings, Palpitations, Polydipsia/polyuria, Skin Changes, Temperature Intolerance, Unexpected Weight Changes, Other Respiratory: No: Cough, Hemoptysis, Orthopnea, Pleuritic Pain, Shortness of breath, SOB with excertion, Sputum Changes, Stridor, Tachypnea, Wheezing, Other Neurological: No Behavorial Changes, No Bowel/Bladder ControlChng, No Confusion, No Dizziness, No Gait Disturbance, No Headaches, No Impaired Coord/balance, No Memory Loss, No Numbness/Tingling, No Seizures, No Speech Problems, No Tremors, No Visual Changes, No Weakness, No Other Physical Exam Physical Exam Physical Exam General: Alert, Oriented X3, Cooperative, No acute distress Heart: Regular rate Lungs: Clear, Crackles Abdomen: Normal bowel sounds, Soft, No tenderness, No hepatosplenomegaly Extremities: No clubbing, No cyanosis, No edema General: Alert, Oriented X3, Cooperative, No acute distress HEENT: Atraumatic, EOMI, Mucous membr. moist/pink Heart: no thrills Breasts: Not examined Rectal Exam: not examined PELVIC: Examination not indicated Extremities: No cyanosis Neuro: Normal speech, Cranial nerves 3-12 NL Psych/Mental Status: Mental status NL, Mood NL Vitals Vitals Vital Signs Date Time Temp Pulse Resp B/P (MAP) Pulse Ox O2 Delivery O2 Flow Rate FiO2 10/15/19 11:01 98 Nasal Cannula 2.0 10/15/19 10:52 97.5 90 24 90/69 (76) 97.5 Labs Labs Laboratory Tests Test 10/14/19 07:21 10/15/19 12:30 White Blood Count 11.2 x10^3/uL (4.0-11.0) Red Blood Count 4.16 x10^6/uL (4.30-5.70) Hemoglobin 12.5 g/dL (13.0-17.5) Hematocrit 37.7 % (39.0-53.0) Mean Corpuscular Volume 91 fL (79-100) Mean Corpuscular Hemoglobin 30 pg (25-35) Mean Corpuscular Hemoglobin Concent 33 g/dL (31-37) Red Cell Distribution Width 13.3 % (11.5-14.5) Platelet Count 286 x10^3/uL (140-400) Prothrombin Time 13.7 SEC (11.7-14.0) Prothromb Time International Ratio 1.1 (0.8-1.1) Activated Partial Thromboplast Time 34 SEC (24-38) Sodium Level 142 mmol/L (136-145) 141 mmol/L (136-145) Potassium Level 4.1 mmol/L (3.5-5.1) 3.8 mmol/L (3.5-5.1) Chloride Level 105 mmol/L (98-107) 106 mmol/L (98-107) Carbon Dioxide Level 25 mmol/L (21-32) 25 mmol/L (21-32) Anion Gap 12 (6-14) 10 (6-14) Blood Urea Nitrogen 15 mg/dL (8-26) 14 mg/dL (8-26) Creatinine 0.8 mg/dL (0.7-1.3) 0.8 mg/dL (0.7-1.3) Estimated GFR (Cockcroft-Gault) 95.8 95.8 Glucose Level 120 mg/dL (70-99) 141 mg/dL (70-99) Calcium Level 8.3 mg/dL (8.5-10.1) 8.3 mg/dL (8.5-10.1) Magnesium Level 2.2 mg/dL (1.8-2.4) Laboratory Tests Test 10/15/19 12:30 Sodium Level 141 mmol/L (136-145) Potassium Level 3.8 mmol/L (3.5-5.1) Chloride Level 106 mmol/L (98-107) Carbon Dioxide Level 25 mmol/L (21-32) Anion Gap 10 (6-14) Blood Urea Nitrogen 14 mg/dL (8-26) Creatinine 0.8 mg/dL (0.7-1.3) Estimated GFR (Cockcroft-Gault) 95.8 Glucose Level 141 mg/dL (70-99) Calcium Level 8.3 mg/dL (8.5-10.1) Magnesium Level 2.2 mg/dL (1.8-2.4) Images Images APPROVED REPORT Technologist: Miley No Nurse: Thea Winters RN Procedure(s) performed: Selective coronary angiography, successful PCI/drug eluting stents placement to the left circumflex and right coronary arteries fl time: 14.7 mins dose: 73 gy/cm2 contrast: 111 ml moderate sedation: 60 MINS INDICATION The indication(s) include : unstable angina , 69-year-old male recently underwent PCI/JAMAL to LAD in the setting of acute anterior wall ST elevation héctor cardial infarction. He presented today for staged PCI/stents placement to left circumflex and right coronary arteries.. [facility] Clinical Frailty Scale [facility] Clinical Frailty Scale: Moderately Frail Heart Failure Heart Failure: No PROCEDURE NARRATIVE After explaining the risks, benefits and alternative options, informed consent was obtained from patient. Patient was brought to the cardiac Travel Specialist and his right wrist was prepped and draped in the usual fashion after confirming a positive modified Filiberto's test. Arterial access was obtained in the right radial artery and 6 Yemeni sheath was inserted. 6 Yemeni XB 3.5 guide catheter was used to engage the left main coronary artery and selective angiography was performed that confirmed the previously described 80% stenosis involving the mid segment of the left circumflex artery. This was crossed with a 0.014 inch [employer] water guidewire and predilated with a 3.0 x 15 mm trek balloon. Subsequently, this was treated with a 3.0 x 22 mm resolute mely drug-eluting stent. Follow-up angiography showed resolution of the stenosis to 0% with DAKOTA-3 distal flow. Following this, the right coronary artery was engaged with a 6 Yemeni JR4 guide catheter and selective angiography was performed that confirmed the previously described 80% stenosis involving the mid to distal segment of the right coronary artery. This was predilated with a 3.0 x 15 mm trek balloon and treated successfully with a 3.5 x 38 mm resolute mely drug-eluting stent. Follow-up angiorrhaphy showed resolution of the stenosis to 0% with DAKOTA-3 distal flow. Patient tolerated the procedure well. Hemostasis was achieved using TR band. There were no immediate complications DAKOTA Flow DAKOTA Flow (Pre-Intervention): DAKOTA-3 DAKOTA Flow (Post-Intervention): DAKOTA-3 Conclusion Successful PCI/drug eluting stents placement to the right coronary and left circumflex arteries. Recommendations 1. Aspirin 325 mg daily for one month followed by 81 mg daily 2. Plavix 75 mg daily for preferably one year 3. Cardiovascular risk factor modification 4. Cardiac rehabilitation referral Signed by : Jj Emanuel, Electronically Approved : 10/14/2019 09:52:09 VTE Prophylaxis Ordered VTE Prophylaxis Devices: Yes VTE Pharmacological Prophylaxi: Contraindicated Assessment/Plan Assessment/Plan impression 1. 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 This time in for staged PCI/JAMAL to LCx/RCA as planned, stable 2. Mild acute systolic CHF: EF noted at 45%, 3. Possible aspiration: Infiltrates per CXR, notable for significant n/v post his STEMI at home per son. 4. Tobaccoism with likely COPD, stopped Moderate to large right pleural effusion and tiny left pleural effusion along with pulmonary interstitial edema. Bilateral multilobar pulmonary opacities are present. Given the presence of interstitial edema, these opacities most likely represent pulmonary alveolar edema. Superimposed multilobar pneumonia is not excluded. Follow-up CT imaging in 3 months is advised per Fleischner guidelines to document that these opacities resolve over time to exclude the possibility of an underlying opacity from nonmasslike malignancy or pneumonitis.. Mediastinal and hilar adenopathy. 5. HTN: BP marginally low currently 6. HLP 7. Mild valvular insufficiency: AI, TR/MR plan admit 1. metoprolol per BP trend. He will need ACEi as well moving forward if BP trend is adequate. Continue statin 2. Cardiac rehab 3. ECASA 325 for 1 month then 81 mg thereafter. Plavix. 4. Smoking cessation. Discussed permanent 5. pulmonary input, antibiotic regimen per evgeny Sequeira 6. transfer to hospitalist group. from cards today BMP, Mg today 7. Follow up with Dr. Emanuel on 11/27 at 2 PM CODY SONI MD Oct 15, 2019 15:07
[2019-10-15 19:00] VITALS: BP 93/69
[2019-10-15] MEDS: LACTOBACILLUS RHAMNOSUS GG 1 CAPSULE. PO SCH (20:19)
[2019-10-15] MEDS: ATORVASTATIN CALCIUM 40 MG TABLET. PO SCH (20:19)
[2019-10-15 23:00] VITALS: BP 93/64
[2019-10-16 03:00] VITALS: BP 96/69
[2019-10-16 04:45] LABS: BASO # 0.1 x10^3/uL (0.0-0.2); BASO % 1 % (0-3); EOS # 0.5 x10^3/uL (0.0-0.7); EOS % 5 % (0-3); HEMOGLOBIN 11.6 g/dL (13.0-17.5); LYMPH # 1.4 x10^3/uL (1.0-4.8); LYMPH % 14 % (24-48); MEAN CORPUSCULAR HEMOGLOBIN 30 pg (25-35); MEAN CORPUSCULAR HGB CONC 33 g/dL (31-37); MEAN CORPUSCULAR VOLUME 90 fL (79-100); MONO # 0.9 x10^3/uL (0.0-1.1); MONO % 9 % (0-9); NEUT # 6.7 x10^3/uL (1.8-7.7); NEUT % 71 % (31-73); PLATELET COUNT 259 x10^3/uL (140-400); RED BLOOD COUNT 3.88 x10^6/uL (4.30-5.70); RED CELL DISTRIBUTION WIDTH 13.5 % (11.5-14.5); WHITE BLOOD COUNT 9.5 x10^3/uL (4.0-11.0)
[2019-10-16 05:05] LABS: ALBUMIN 2.3 g/dL (3.4-5.0); ALBUMIN/GLOBULIN RATIO 0.5 (1.0-1.7); CALCIUM 8.4 mg/dL (8.5-10.1); CREATININE 0.8 mg/dL (0.7-1.3); GFR 95.8; POTASSIUM 3.8 mmol/L (3.5-5.1); TOTAL BILIRUBIN 0.5 mg/dL (0.2-1.0); TOTAL PROTEIN 6.8 g/dL (6.4-8.2)
[2019-10-16] MEDS: PIPERACILLIN/TAZOBACTAM 4.5 GM in IV NORMAL SALINE 100ML 100 ML IV SCH ×4 (06:10→23:56)
[2019-10-16 07:00] VITALS: BP 99/69
[2019-10-16] MEDS: IPRATRPIUM/ALBUTEROL 0.5/2.5MG 3 ML NEBU. NEB SCH ×4 (07:50→20:00)
[2019-10-16] MEDS ORDERED: TEMAZEPAM 7.5 MG CAPSULE PO PRN (08:15)
[2019-10-16] MEDS ORDERED: ACETAMINOPHEN 500 MG TABLET PO PRN (08:15)
[2019-10-16] MEDS ORDERED: ONDANSETRON PF 4 MG/2 ML VIAL. IVP PRN (08:15)
[2019-10-16] MEDS ORDERED: ACETAMINOPHEN/CODEINE 300/30MG TABLET. PO PRN (08:15)
[2019-10-16] MEDS: LACTOBACILLUS RHAMNOSUS GG 1 CAPSULE. PO SCH ×2 (09:09→20:49)
[2019-10-16] MEDS: ASPIRIN ENTERIC COATED 325 MG TABLET.DR. PO SCH (09:09)
[2019-10-16] MEDS ORDERED: PANT40TA77 PO (09:10)
[2019-10-16] MEDS: CLOPIDOGREL BISULFATE 75 MG TABLET PO SCH (09:10)
[2019-10-16] MEDS: METOPROLOL TART IMMED RELEASE 25 MG TABLET. PO SCH ×2 (09:10→20:49)
--- NOTE | 2019-10-16 09:10 | PDOC ---
PROGRESS NOTES Chief Complaint Chief Complaint 1. 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 This time in for staged PCI/JAMAL to LCx/RCA as planned, stable 2. Mild acute systolic CHF: EF noted at 45%, appears compensated. lasix received yesterday 3. Possible aspiration: Infiltrates per CXR, notable for significant n/v post his STEMI at home per son. 4. Tobaccoism with likely COPD 5. HTN: BP marginally low currently 6. HLP 7. Mild valvular insufficiency: AI, TR/MR] 8. MOD to RT sided pleural effusion History of Present Illness History of Present Illness GERD sxs last night SOA at rest Has moderate to large sided pleural effusion with interstitial; edema on CT chest s/o staged PCI (total 3 stents here)- went in twice PLAN: LAsix iV? NEed for thoracentesis? Add PT OT COncerns of asp per other notes, so i ordered [employer] Dw son at bedside Add PPI Vitals Vitals Vital Signs Date Time Temp Pulse Resp B/P (MAP) Pulse Ox O2 Delivery O2 Flow Rate FiO2 10/16/19 07:53 100 Nasal Cannula 2.0 10/16/19 07:00 85 20 99/69 (79) 10/16/19 03:00 98.4 98.4 Physical Exam General: Alert, Oriented X3, Cooperative, No acute distress Heart: Regular rate Lungs: Clear, Crackles Abdomen: Normal bowel sounds, Soft, No tenderness, No hepatosplenomegaly Extremities: No cyanosis Labs LABS Laboratory Tests Test 10/15/19 12:30 10/16/19 04:00 Sodium Level 141 mmol/L (136-145) 139 mmol/L (136-145) Potassium Level 3.8 mmol/L (3.5-5.1) 3.8 mmol/L (3.5-5.1) Chloride Level 106 mmol/L (98-107) 105 mmol/L (98-107) Carbon Dioxide Level 25 mmol/L (21-32) 25 mmol/L (21-32) Anion Gap 10 (6-14) 9 (6-14) Blood Urea Nitrogen 14 mg/dL (8-26) 14 mg/dL (8-26) Creatinine 0.8 mg/dL (0.7-1.3) 0.8 mg/dL (0.7-1.3) Estimated GFR (Cockcroft-Gault) 95.8 95.8 Glucose Level 141 mg/dL (70-99) 121 mg/dL (70-99) Calcium Level 8.3 mg/dL (8.5-10.1) 8.4 mg/dL (8.5-10.1) Magnesium Level 2.2 mg/dL (1.8-2.4) White Blood Count 9.5 x10^3/uL (4.0-11.0) Red Blood Count 3.88 x10^6/uL (4.30-5.70) Hemoglobin 11.6 g/dL (13.0-17.5) Hematocrit 35.0 % (39.0-53.0) Mean Corpuscular Volume 90 fL (79-100) Mean Corpuscular Hemoglobin 30 pg (25-35) Mean Corpuscular Hemoglobin Concent 33 g/dL (31-37) Red Cell Distribution Width 13.5 % (11.5-14.5) Platelet Count 259 x10^3/uL (140-400) Neutrophils (%) (Auto) 71 % (31-73) Lymphocytes (%) (Auto) 14 % (24-48) Monocytes (%) (Auto) 9 % (0-9) Eosinophils (%) (Auto) 5 % (0-3) Basophils (%) (Auto) 1 % (0-3) Neutrophils # (Auto) 6.7 x10^3/uL (1.8-7.7) Lymphocytes # (Auto) 1.4 x10^3/uL (1.0-4.8) Monocytes # (Auto) 0.9 x10^3/uL (0.0-1.1) Eosinophils # (Auto) 0.5 x10^3/uL (0.0-0.7) Basophils # (Auto) 0.1 x10^3/uL (0.0-0.2) BUN/Creatinine Ratio 18 (6-20) Total Bilirubin 0.5 mg/dL (0.2-1.0) Aspartate Amino Transf (AST/SGOT) 38 U/L (15-37) Alanine Aminotransferase (ALT/SGPT) 57 U/L (16-63) Alkaline Phosphatase 66 U/L (46-116) Total Protein 6.8 g/dL (6.4-8.2) Albumin 2.3 g/dL (3.4-5.0) Albumin/Globulin Ratio 0.5 (1.0-1.7) Review of Systems Review of Systems soa at rest,w eak, no choking, no cp, no abd issues, GERD sxs Comment Review of Relevant I have reviewed the following items bailee (where applicable) has been applied. Labs Laboratory Tests Test 10/15/19 12:30 10/16/19 04:00 Sodium Level 141 mmol/L (136-145) 139 mmol/L (136-145) Potassium Level 3.8 mmol/L (3.5-5.1) 3.8 mmol/L (3.5-5.1) Chloride Level 106 mmol/L (98-107) 105 mmol/L (98-107) Carbon Dioxide Level 25 mmol/L (21-32) 25 mmol/L (21-32) Anion Gap 10 (6-14) 9 (6-14) Blood Urea Nitrogen 14 mg/dL (8-26) 14 mg/dL (8-26) Creatinine 0.8 mg/dL (0.7-1.3) 0.8 mg/dL (0.7-1.3) Estimated GFR (Cockcroft-Gault) 95.8 95.8 Glucose Level 141 mg/dL (70-99) 121 mg/dL (70-99) Calcium Level 8.3 mg/dL (8.5-10.1) 8.4 mg/dL (8.5-10.1) Magnesium Level 2.2 mg/dL (1.8-2.4) White Blood Count 9.5 x10^3/uL (4.0-11.0) Red Blood Count 3.88 x10^6/uL (4.30-5.70) Hemoglobin 11.6 g/dL (13.0-17.5) Hematocrit 35.0 % (39.0-53.0) Mean Corpuscular Volume 90 fL (79-100) Mean Corpuscular Hemoglobin 30 pg (25-35) Mean Corpuscular Hemoglobin Concent 33 g/dL (31-37) Red Cell Distribution Width 13.5 % (11.5-14.5) Platelet Count 259 x10^3/uL (140-400) Neutrophils (%) (Auto) 71 % (31-73) Lymphocytes (%) (Auto) 14 % (24-48) Monocytes (%) (Auto) 9 % (0-9) Eosinophils (%) (Auto) 5 % (0-3) Basophils (%) (Auto) 1 % (0-3) Neutrophils # (Auto) 6.7 x10^3/uL (1.8-7.7) Lymphocytes # (Auto) 1.4 x10^3/uL (1.0-4.8) Monocytes # (Auto) 0.9 x10^3/uL (0.0-1.1) Eosinophils # (Auto) 0.5 x10^3/uL (0.0-0.7) Basophils # (Auto) 0.1 x10^3/uL (0.0-0.2) BUN/Creatinine Ratio 18 (6-20) Total Bilirubin 0.5 mg/dL (0.2-1.0) Aspartate Amino Transf (AST/SGOT) 38 U/L (15-37) Alanine Aminotransferase (ALT/SGPT) 57 U/L (16-63) Alkaline Phosphatase 66 U/L (46-116) Total Protein 6.8 g/dL (6.4-8.2) Albumin 2.3 g/dL (3.4-5.0) Albumin/Globulin Ratio 0.5 (1.0-1.7) Laboratory Tests Test 10/15/19 12:30 10/16/19 04:00 Sodium Level 141 mmol/L (136-145) 139 mmol/L (136-145) Potassium Level 3.8 mmol/L (3.5-5.1) 3.8 mmol/L (3.5-5.1) Chloride Level 106 mmol/L (98-107) 105 mmol/L (98-107) Carbon Dioxide Level 25 mmol/L (21-32) 25 mmol/L (21-32) Anion Gap 10 (6-14) 9 (6-14) Blood Urea Nitrogen 14 mg/dL (8-26) 14 mg/dL (8-26) Creatinine 0.8 mg/dL (0.7-1.3) 0.8 mg/dL (0.7-1.3) Estimated GFR (Cockcroft-Gault) 95.8 95.8 Glucose Level 141 mg/dL (70-99) 121 mg/dL (70-99) Calcium Level 8.3 mg/dL (8.5-10.1) 8.4 mg/dL (8.5-10.1) Magnesium Level 2.2 mg/dL (1.8-2.4) White Blood Count 9.5 x10^3/uL (4.0-11.0) Red Blood Count 3.88 x10^6/uL (4.30-5.70) Hemoglobin 11.6 g/dL (13.0-17.5) Hematocrit 35.0 % (39.0-53.0) Mean Corpuscular Volume 90 fL (79-100) Mean Corpuscular Hemoglobin 30 pg (25-35) Mean Corpuscular Hemoglobin Concent 33 g/dL (31-37) Red Cell Distribution Width 13.5 % (11.5-14.5) Platelet Count 259 x10^3/uL (140-400) Neutrophils (%) (Auto) 71 % (31-73) Lymphocytes (%) (Auto) 14 % (24-48) Monocytes (%) (Auto) 9 % (0-9) Eosinophils (%) (Auto) 5 % (0-3) Basophils (%) (Auto) 1 % (0-3) Neutrophils # (Auto) 6.7 x10^3/uL (1.8-7.7) Lymphocytes # (Auto) 1.4 x10^3/uL (1.0-4.8) Monocytes # (Auto) 0.9 x10^3/uL (0.0-1.1) Eosinophils # (Auto) 0.5 x10^3/uL (0.0-0.7) Basophils # (Auto) 0.1 x10^3/uL (0.0-0.2) BUN/Creatinine Ratio 18 (6-20) Total Bilirubin 0.5 mg/dL (0.2-1.0) Aspartate Amino Transf (AST/SGOT) 38 U/L (15-37) Alanine Aminotransferase (ALT/SGPT) 57 U/L (16-63) Alkaline Phosphatase 66 U/L (46-116) Total Protein 6.8 g/dL (6.4-8.2) Albumin 2.3 g/dL (3.4-5.0) Albumin/Globulin Ratio 0.5 (1.0-1.7) Medications Current Medications Iodixanol (Visipaque 320) 100 ml STK-MED ONCE .ROUTE ; Start 10/14/19 at 07:32; Stop 10/14/19 at 07:32; Status DC Heparin Sodium/ Sodium Chloride 1,000 ml @ As Directed STK-MED ONCE .ROUTE ; Start 10/14/19 at 07:32; Stop 10/14/19 at 07:33; Status DC Lidocaine HCl (Xylocaine-Mpf 1% 2ml Vial) 2 ml STK-MED ONCE .ROUTE ; Start 10/14/19 at 07:32; Stop 10/14/19 at 07:33; Status DC Albuterol/ Ipratropium (Duoneb) 3 ml 1X ONCE NEB Last administered on 10/14/19at 08:06; Start 10/14/19 at 07:45; Stop 10/14/19 at 07:47; Status DC Fentanyl Citrate (Fentanyl 2ml Vial) 100 mcg STK-MED ONCE .ROUTE ; Start 10/14/19 at 07:57; Stop 10/14/19 at 07:57; Status DC Midazolam HCl (Versed) 2 mg STK-MED ONCE .ROUTE ; Start 10/14/19 at 07:57; Stop 10/14/19 at 07:58; Status DC Heparin Sodium (Porcine) (Heparin Sodium) 10,000 unit STK-MED ONCE .ROUTE ; Start 10/14/19 at 07:57; Stop 10/14/19 at 07:58; Status DC Verapamil HCl (Verapamil) 5 mg STK-MED ONCE .ROUTE ; Start 10/14/19 at 07:57; Stop 10/14/19 at 07:58; Status DC Nitroglycerin (Nitroglycerin) 200 mcg STK-MED ONCE .ROUTE ; Start 10/14/19 at 07:57; Stop 10/14/19 at 07:58; Status DC Nitroglycerin (Nitroglycerin) 200 mcg 1X ONCE IART Last administered on 10/14/19at 08:00; Start 10/14/19 at 08:00; Stop 10/14/19 at 08:03; Status DC Verapamil HCl (Verapamil) 2.5 mg 1X ONCE IART Last administered on 10/14/19at 08:47; Start 10/14/19 at 08:00; Stop 10/14/19 at 08:03; Status DC Heparin Sodium (Porcine) (Heparin Sodium) 2,500 unit 1X ONCE IART Last administered on 10/14/19at 08:00; Start 10/14/19 at 08:00; Stop 10/14/19 at 08:03; Status DC Heparin Sodium/ Sodium Chloride (HEPARIN for ARTERIAL LINE FLUSH) 1,000 unit 1X ONCE IART Last administered on 10/14/19at 08:00; Start 10/14/19 at 08:00; Stop 10/14/19 at 08:03; Status DC Heparin Sodium/ Sodium Chloride (HEPARIN for ARTERIAL LINE FLUSH) 1,000 unit 1X ONCE IART Last administered on 10/14/19at 08:00; Start 10/14/19 at 08:00; Stop 10/14/19 at 08:03; Status DC Midazolam HCl (Versed) 2 mg 1X ONCE IV Last administered on 10/14/19 08:00; Start 10/14/19 at 08:00; Stop 10/14/19 at 08:03; Status DC Fentanyl Citrate (Fentanyl 2ml Vial) 100 mcg 1X ONCE IV Last administered on 10/14/19at 08:00; Start 10/14/19 at 08:00; Stop 10/14/19 at 08:03; Status DC Iodixanol (Visipaque 320) 100 ml 1X ONCE IART Last administered on 10/14/19 08:00; Start 10/14/19 at 08:00; Stop 10/14/19 at 08:03; Status DC Lidocaine HCl (Xylocaine-Mpf 1% 2ml Vial) 2 ml 1X ONCE INJ Last administered on 10/14/19at 08:47; Start 10/14/19 at 08:00; Stop 10/14/19 at 08:03; Status DC Info (CONTRAST GIVEN -- Rx MONITORING) 1 each PRN DAILY PRN MC SEE COMMENTS; Start 10/14/19 at 08:15; Stop 10/16/19 at 08:14; Status DC Bivalirudin (Angiomax) 250 mg STK-MED ONCE IV ; Start 10/14/19 at 08:50; Stop 10/14/19 at 08:50; Status DC Bivalirudin (Angiomax) 250 mg 1X ONCE IV Last administered on 10/14/19at 09:0 9; Start 10/14/19 at 09:15; Stop 10/14/19 at 09:16; Status DC Sodium Chloride 1,000 ml @ 100 mls/hr Q10H IV ; Start 10/14/19 at 09:39; Stop 10/15/19 at 05:46; Status DC Aspirin (Ecotrin) 325 mg DAILYWBKFT PO Last administered on 10/15/19at 08:54; Start 10/15/19 at 08:00 Clopidogrel Bisulfate (Plavix) 75 mg DAILYWBKFT PO Last administered on 10/15/19at 08:54; Start 10/15/19 at 08:00 Atorvastatin Calcium (Lipitor) 40 mg QHS PO Last administered on 10/15/19at 20:19; Start 10/14/19 at 21:00 Metoprolol Tartrate (Lopressor) 12.5 mg BID PO Last administered on 10/15/19at 20:19; Start 10/14/19 at 21:00 Furosemide (Lasix) 20 mg 1X ONCE IVP Last administered on 10/14/19at 12:14; Start 10/14/19 at 12:00; Stop 10/14/19 at 12:01; Status DC Piperacillin Sod/ Tazobactam Sod (Zosyn Per Pharmacy) 1 each PRN DAILY PRN MC SEE COMMENTS; Start 10/14/19 at 12:45 Piperacillin Sod/ Tazobactam Sod 4.5 gm/Sodium Chloride 100 ml @ 200 mls/hr Q6HRS IV Last administered on 10/16/19at 06:10; Start 10/14/19 at 13:00 Albuterol/ Ipratropium (Duoneb) 3 ml RTQID NEB Last administered on 10/16/19at 07:50; Start 10/14/19 at 16:15 Lactobacillus Rhamnosus (Culturelle) 1 cap BID PO Last administered on 10/15/19at 20:19; Start 10/15/19 at 21:00 Acetaminophen (Tylenol) 500 mg PRN Q6HRS PRN PO MILD PAIN / TEMP; Start 10/16/19 at 08:15 Acetaminophen/ Codeine Phosphate (Tylenol #3) 1 tab PRN Q6HRS PRN PO MODERATE PAIN; Start 10/16/19 at 08:15 Ondansetron HCl (Zofran) 4 mg PRN Q6HRS PRN IVP NAUSEA/VOMITING; Start 10/16/19 at 08:15 Temazepam (Restoril) 7.5 mg PRN QHS PRN PO INSOMNIA; Start 10/16/19 at 08:15 Active Scripts Active Metoprolol Tartrate 25 Mg Tablet 12.5 Mg PO BID Aspirin Ec (Aspirin) 325 Mg Tablet.dr 325 Mg PO DAILYWBKFT Atorvastatin Calcium 40 Mg Tablet 40 Mg PO QHS Nitrostat (Nitroglycerin) 0.4 Mg Tab.subl 0.4 Mg SL PRN Q5MIN PRN Clopidogrel (Clopidogrel Bisulfate) 75 Mg Tablet 75 Mg PO DAILYWBKFT Vitals/I & O Vital Sign - Last 24 Hours 10/15/19 10/15/19 10/15/19 10/15/19 10:52 11:01 15:00 15:26 Temp 97.5 97.4 97.5 97.4 Pulse 90 89 Resp 24 B/P (MAP) 90/69 (76) 98/70 (79) Pulse Ox 97 98 96 O2 Delivery Nasal Cannula Nasal Cannula Nasal Cannula Nasal Cannula O2 Flow Rate 2.0 2.0 2.0 2.0 10/15/19 10/15/19 10/15/19 10/15/19 19:00 20:00 20:11 20:19 Temp 97.5 97.5 Pulse 85 87 Resp 20 B/P (MAP) 93/69 (77) 93/69 Pulse Ox 97 96 O2 Delivery Nasal Cannula Nasal Cannula Nasal Cannula O2 Flow Rate 2.0 3.0 3.0 10/15/19 10/16/19 10/16/19 10/16/19 23:00 03:00 07:00 07:53 Temp 98.5 98.4 98.5 98.4 Pulse 93 86 85 Resp 20 20 20 B/P (MAP) 93/64 (74) 96/69 (78) 99/69 (79) Pulse Ox 96 94 100 100 O2 Delivery Nasal Cannula Nasal Cannula Nasal Cannula Nasal Cannula O2 Flow Rate 2.0 2.0 2.0 2.0 Intake and Output 10/15/19 10/15/19 10/16/19 15:00 23:00 07:00 Intake Total 600 ml 120 ml 400 ml Output Total 200 ml Balance 600 ml 120 ml 200 ml SHAHNAZ SUN MD Oct 16, 2019 09:10
[2019-10-16] MEDS ORDERED: PANTOPRAZOLE 40 MG TABLET.DR. PO ONE (09:15)
[2019-10-16] MEDS ORDERED: MAG HYDROX/ALUMINUM HYD/SIMETH 30 ML ORAL.SUSP PO PRN (09:15)
[2019-10-16] MEDS ORDERED: FUROSEMIDE 20 MG/2 ML VIAL. IVP ONE ×2 (09:45→16:00)
[2019-10-16] MEDS: PANTOPRAZOLE 40 MG TABLET.DR. PO SCH (10:09)
[2019-10-16 11:00] VITALS: BP 96/68
--- NOTE | 2019-10-16 11:22 | PDOC ---
PULMONARY PROGRESS NOTES Subjective SOA last night Vitals Vital Signs Date Time Temp Pulse Resp B/P (MAP) Pulse Ox O2 Delivery O2 Flow Rate FiO2 10/16/19 09:10 85 99/69 10/16/19 08:00 Nasal Cannula 2.0 10/16/19 07:53 100 10/16/19 07:00 20 10/16/19 03:00 98.4 98.4 General: Alert, No acute distress Lungs: Crackles (bases) Cardiovascular: S1 Abdomen: Soft Neuro Exam: Alert Extremities: No Edema Skin: Warm Labs Laboratory Tests Test 10/15/19 12:30 10/16/19 04:00 Sodium Level 141 mmol/L (136-145) 139 mmol/L (136-145) Potassium Level 3.8 mmol/L (3.5-5.1) 3.8 mmol/L (3.5-5.1) Chloride Level 106 mmol/L (98-107) 105 mmol/L (98-107) Carbon Dioxide Level 25 mmol/L (21-32) 25 mmol/L (21-32) Anion Gap 10 (6-14) 9 (6-14) Blood Urea Nitrogen 14 mg/dL (8-26) 14 mg/dL (8-26) Creatinine 0.8 mg/dL (0.7-1.3) 0.8 mg/dL (0.7-1.3) Estimated GFR (Cockcroft-Gault) 95.8 95.8 Glucose Level 141 mg/dL (70-99) 121 mg/dL (70-99) Calcium Level 8.3 mg/dL (8.5-10.1) 8.4 mg/dL (8.5-10.1) Magnesium Level 2.2 mg/dL (1.8-2.4) White Blood Count 9.5 x10^3/uL (4.0-11.0) Red Blood Count 3.88 x10^6/uL (4.30-5.70) Hemoglobin 11.6 g/dL (13.0-17.5) Hematocrit 35.0 % (39.0-53.0) Mean Corpuscular Volume 90 fL (79-100) Mean Corpuscular Hemoglobin 30 pg (25-35) Mean Corpuscular Hemoglobin Concent 33 g/dL (31-37) Red Cell Distribution Width 13.5 % (11.5-14.5) Platelet Count 259 x10^3/uL (140-400) Neutrophils (%) (Auto) 71 % (31-73) Lymphocytes (%) (Auto) 14 % (24-48) Monocytes (%) (Auto) 9 % (0-9) Eosinophils (%) (Auto) 5 % (0-3) Basophils (%) (Auto) 1 % (0-3) Neutrophils # (Auto) 6.7 x10^3/uL (1.8-7.7) Lymphocytes # (Auto) 1.4 x10^3/uL (1.0-4.8) Monocytes # (Auto) 0.9 x10^3/uL (0.0-1.1) Eosinophils # (Auto) 0.5 x10^3/uL (0.0-0.7) Basophils # (Auto) 0.1 x10^3/uL (0.0-0.2) BUN/Creatinine Ratio 18 (6-20) Total Bilirubin 0.5 mg/dL (0.2-1.0) Aspartate Amino Transf (AST/SGOT) 38 U/L (15-37) Alanine Aminotransferase (ALT/SGPT) 57 U/L (16-63) Alkaline Phosphatase 66 U/L (46-116) Total Protein 6.8 g/dL (6.4-8.2) Albumin 2.3 g/dL (3.4-5.0) Albumin/Globulin Ratio 0.5 (1.0-1.7) Procalcitonin < 0.10 ng/mL (0.00-0.10) Laboratory Tests Test 10/15/19 12:30 10/16/19 04:00 Sodium Level 141 mmol/L (136-145) 139 mmol/L (136-145) Potassium Level 3.8 mmol/L (3.5-5.1) 3.8 mmol/L (3.5-5.1) Chloride Level 106 mmol/L (98-107) 105 mmol/L (98-107) Carbon Dioxide Level 25 mmol/L (21-32) 25 mmol/L (21-32) Anion Gap 10 (6-14) 9 (6-14) Blood Urea Nitrogen 14 mg/dL (8-26) 14 mg/dL (8-26) Creatinine 0.8 mg/dL (0.7-1.3) 0.8 mg/dL (0.7-1.3) Estimated GFR (Cockcroft-Gault) 95.8 95.8 Glucose Level 141 mg/dL (70-99) 121 mg/dL (70-99) Calcium Level 8.3 mg/dL (8.5-10.1) 8.4 mg/dL (8.5-10.1) Magnesium Level 2.2 mg/dL (1.8-2.4) White Blood Count 9.5 x10^3/uL (4.0-11.0) Red Blood Count 3.88 x10^6/uL (4.30-5.70) Hemoglobin 11.6 g/dL (13.0-17.5) Hematocrit 35.0 % (39.0-53.0) Mean Corpuscular Volume 90 fL (79-100) Mean Corpuscular Hemoglobin 30 pg (25-35) Mean Corpuscular Hemoglobin Concent 33 g/dL (31-37) Red Cell Distribution Width 13.5 % (11.5-14.5) Platelet Count 259 x10^3/uL (140-400) Neutrophils (%) (Auto) 71 % (31-73) Lymphocytes (%) (Auto) 14 % (24-48) Monocytes (%) (Auto) 9 % (0-9) Eosinophils (%) (Auto) 5 % (0-3) Basophils (%) (Auto) 1 % (0-3) Neutrophils # (Auto) 6.7 x10^3/uL (1.8-7.7) Lymphocytes # (Auto) 1.4 x10^3/uL (1.0-4.8) Monocytes # (Auto) 0.9 x10^3/uL (0.0-1.1) Eosinophils # (Auto) 0.5 x10^3/uL (0.0-0.7) Basophils # (Auto) 0.1 x10^3/uL (0.0-0.2) BUN/Creatinine Ratio 18 (6-20) Total Bilirubin 0.5 mg/dL (0.2-1.0) Aspartate Amino Transf (AST/SGOT) 38 U/L (15-37) Alanine Aminotransferase (ALT/SGPT) 57 U/L (16-63) Alkaline Phosphatase 66 U/L (46-116) Total Protein 6.8 g/dL (6.4-8.2) Albumin 2.3 g/dL (3.4-5.0) Albumin/Globulin Ratio 0.5 (1.0-1.7) Procalcitonin < 0.10 ng/mL (0.00-0.10) Medications Active Scripts Medications Dose Route/Sig Max Daily Dose Days Date Category Metoprolol Tartrate 25 Mg Tablet 12.5 Mg PO BID 09/28/19 Rx Aspirin Ec (Aspirin) 325 Mg Tablet.dr 325 Mg PO DAILYWBKFT 09/28/19 Rx Atorvastatin Calcium 40 Mg Tablet 40 Mg PO QHS 09/28/19 Rx Nitrostat (Nitroglycerin) 0.4 Mg Tab.subl 0.4 Mg SL PRN Q5MIN PRN 09/28/19 Rx Clopidogrel (Clopidogrel Bisulfate) 75 Mg Tablet 75 Mg PO DAILYWBKFT 09/28/[address] CHEST IMPRESSION: 1. Moderate to large right pleural effusion and tiny left pleural effusion along with pulmonary interstitial edema. 2. Bilateral multilobar pulmonary opacities are present. Given the presence of interstitial edema, these opacities most likely represent pulmonary alveolar edema. Superimposed multilobar pneumonia is not excluded. Follow-up CT imaging in 3 months is advised per Fleischner guidelines to document that these opacities resolve over time to exclude the possibility of an underlying opacity from nonmasslike malignancy or pneumonitis. 3. Mediastinal and hilar adenopathy. Impression . 1. Acute hypoxic respiratory failure secondary to acute on chronic diastolic heart failure and suspected aspiration pneumonia 2. The patient with 3-vessel coronary artery disease, status post stent initially to LAD on 09/27/2019 and now stent placed to RCA and circumflex. 3. Mild cardiomyopathy with an EF of 45%. 4. Possible chronic obstructive pulmonary disease. 5. Abnormal ct chest with diffuse alveolar infiltrates and effusions moderate on right, likely due to CHF Plan . 1. Discussed with the nurse. Continue present oxygen. 2. clinically unchanged 3. diuresis., watch BP 4. Zosyn 5. Follow Cardiology recommendation. 6. Discussed with RN and the patient's . d/w JOSE Dominguez MD Oct 16, 2019 11:21
--- NOTE | 2019-10-16 12:13 | PDOC ---
PROGRESS NOTES Subjective Subjective Had shortness of breath and burning chest pain last night but presently feeling better Objective Objective Vital Signs Date Time Temp Pulse Resp B/P (MAP) Pulse Ox O2 Delivery O2 Flow Rate FiO2 10/16/19 11:55 100 Nasal Cannula 2.0 10/16/19 11:00 97.3 82 20 96/68 (77) 97.3 Intake and Output 10/16/19 07:00 Intake Total 1120 ml Output Total 200 ml Balance 920 ml Intake Oral 1120 ml Output Urine Total 200 ml # Voids 6 Physical Exam Abdomen: Normal bowel sounds, Soft, No tenderness, No hepatosplenomegaly Heart: Regular rate Extremities: No cyanosis General: Alert, Oriented X3, Cooperative, No acute distress HEENT: Atraumatic, EOMI, Mucous membr. moist/pink Neuro: Normal speech, Cranial nerves 3-12 NL Psych/Mental Status: Mental status NL, Mood NL Assessment Assessment 1. CAD/3VD: recent STEMI with culprit LAD with PCI/JAMAL on 09/27/2019 and staged PCI/JAMAL to LCx/RCA current admission, presently chest pain-free. Continue dual antiplatelet therapy. Cardiac rehabilitation referral. Advised smoking cessation. 2. Mild acute systolic CHF: EF noted at 45%, slightly decompensated. Agree with diuresis with Lasix. 3. Possible aspiration: Infiltrates per CXR, notable for significant n/v post his STEMI at home per son. Continue current treatment per pulmonary team. 4. Tobaccoism with likely COPD 5. HTN: BP marginally low currently 6. HLP: statins Comment Review of Relevant I have reviewed the following items bailee (where applicable) has been applied. Labs Laboratory Tests Test 10/15/19 12:30 10/16/19 04:00 Sodium Level 141 mmol/L (136-145) 139 mmol/L (136-145) Potassium Level 3.8 mmol/L (3.5-5.1) 3.8 mmol/L (3.5-5.1) Chloride Level 106 mmol/L (98-107) 105 mmol/L (98-107) Carbon Dioxide Level 25 mmol/L (21-32) 25 mmol/L (21-32) Anion Gap 10 (6-14) 9 (6-14) Blood Urea Nitrogen 14 mg/dL (8-26) 14 mg/dL (8-26) Creatinine 0.8 mg/dL (0.7-1.3) 0.8 mg/dL (0.7-1.3) Estimated GFR (Cockcroft-Gault) 95.8 95.8 Glucose Level 141 mg/dL (70-99) 121 mg/dL (70-99) Calcium Level 8.3 mg/dL (8.5-10.1) 8.4 mg/dL (8.5-10.1) Magnesium Level 2.2 mg/dL (1.8-2.4) White Blood Count 9.5 x10^3/uL (4.0-11.0) Red Blood Count 3.88 x10^6/uL (4.30-5.70) Hemoglobin 11.6 g/dL (13.0-17.5) Hematocrit 35.0 % (39.0-53.0) Mean Corpuscular Volume 90 fL (79-100) Mean Corpuscular Hemoglobin 30 pg (25-35) Mean Corpuscular Hemoglobin Concent 33 g/dL (31-37) Red Cell Distribution Width 13.5 % (11.5-14.5) Platelet Count 259 x10^3/uL (140-400) Neutrophils (%) (Auto) 71 % (31-73) Lymphocytes (%) (Auto) 14 % (24-48) Monocytes (%) (Auto) 9 % (0-9) Eosinophils (%) (Auto) 5 % (0-3) Basophils (%) (Auto) 1 % (0-3) Neutrophils # (Auto) 6.7 x10^3/uL (1.8-7.7) Lymphocytes # (Auto) 1.4 x10^3/uL (1.0-4.8) Monocytes # (Auto) 0.9 x10^3/uL (0.0-1.1) Eosinophils # (Auto) 0.5 x10^3/uL (0.0-0.7) Basophils # (Auto) 0.1 x10^3/uL (0.0-0.2) BUN/Creatinine Ratio 18 (6-20) Total Bilirubin 0.5 mg/dL (0.2-1.0) Aspartate Amino Transf (AST/SGOT) 38 U/L (15-37) Alanine Aminotransferase (ALT/SGPT) 57 U/L (16-63) Alkaline Phosphatase 66 U/L (46-116) Total Protein 6.8 g/dL (6.4-8.2) Albumin 2.3 g/dL (3.4-5.0) Albumin/Globulin Ratio 0.5 (1.0-1.7) Procalcitonin < 0.10 ng/mL (0.00-0.10) Medications Current Medications Acetaminophen (Tylenol) 500 mg PRN Q6HRS PRN PO MILD PAIN / TEMP; Start 10/16/19 at 08:15 Acetaminophen/ Codeine Phosphate (Tylenol #3) 1 tab PRN Q6HRS PRN PO MODERATE PAIN; Start 10/16/19 at 08:15 Al Hydroxide/Mg Hydroxide (Mylanta Plus Xs) 30 ml PRN Q2HR PRN PO HEARTBURN / GAS; Start 10/16/19 at 09:15 Furosemide (Lasix) 20 mg 1X ONCE IVP Last administered on 10/16/19at 10:00; Start 10/16/19 at 09:45; Stop 10/16/19 at 09:46; Status DC Furosemide (Lasix) 20 mg 1X ONCE IVP ; Start 10/16/19 at 16:00; Stop 10/16/19 at 16:01 Lactobacillus Rhamnosus (Culturelle) 1 cap BID PO Last administered on 10/16/19at 09:09; Start 10/15/19 at 21:00 Ondansetron HCl (Zofran) 4 mg PRN Q6HRS PRN IVP NAUSEA/VOMITING; Start 10/16/19 at 08:15 Pantoprazole Sodium (Protonix) 40 mg 1X ONCE PO ; Start 10/16/19 at 09:15; Stop 10/16/19 at 09:14; Status DC Pantoprazole Sodium (Protonix) 40 mg DAILYAC PO Last administered on 10/16/19at 10:09; Start 10/16/19 at 10:00 Temazepam (Restoril) 7.5 mg PRN QHS PRN PO INSOMNIA; Start 10/16/19 at 08:15 Vitals/I & O Vital Sign - Last 24 Hours 10/15/19 10/15/19 10/15/19 10/15/19 15:00 15:26 19:00 20:00 Temp 97.4 97.5 97.4 97.5 Pulse 89 85 Resp 24 20 B/P (MAP) 98/70 (79) 93/69 (77) Pulse Ox 96 97 O2 Delivery Nasal Cannula Nasal Cannula Nasal Cannula Nasal Cannula O2 Flow Rate 2.0 2.0 2.0 3.0 10/15/19 10/15/19 10/15/19 10/16/19 20:11 20:19 23:00 03:00 Temp 98.5 98.4 98.5 98.4 Pulse 87 93 86 Resp 20 20 B/P (MAP) 93/69 93/64 (74) 96/69 (78) Pulse Ox 96 96 94 O2 Delivery Nasal Cannula Nasal Cannula Nasal Cannula O2 Flow Rate 3.0 2.0 2.0 10/16/19 10/16/19 10/16/19 10/16/19 07:00 07:53 08:00 09:10 Pulse 85 85 Resp 20 B/P (MAP) 99/69 (79) 99/69 Pulse Ox 100 100 O2 Delivery Nasal Cannula Nasal Cannula Nasal Cannula O2 Flow Rate 2.0 2.0 2.0 10/16/19 10/16/19 11:00 11:55 Temp 97.3 97.3 Pulse 82 Resp 20 B/P (MAP) 96/68 (77) Pulse Ox 95 100 O2 Delivery Nasal Cannula Nasal Cannula O2 Flow Rate 2.0 2.0 l Intake and Output 10/15/19 10/15/19 10/16/19 15:00 23:00 07:00 Intake Total 600 ml 120 ml 400 ml Output Total 200 ml Balance 600 ml 120 ml 200 ml FAISAL DOWNS MD Oct 16, 2019 12:13
[2019-10-16 15:00] VITALS: BP 87/65
[2019-10-16 19:08] VITALS: BP 104/70
[2019-10-16] MEDS: ATORVASTATIN CALCIUM 40 MG TABLET. PO SCH (20:49)
[2019-10-16 22:45] VITALS: BP 87/65
[2019-10-17 03:30] VITALS: BP 84/67
[2019-10-17] MEDS: PIPERACILLIN/TAZOBACTAM 4.5 GM in IV NORMAL SALINE 100ML 100 ML IV SCH ×4 (06:18→23:54)
[2019-10-17 07:00] VITALS: BP 84/59
[2019-10-17 08:50] LABS: CALCIUM 8.2 mg/dL (8.5-10.1); GFR 74.1; POTASSIUM 3.5 mmol/L (3.5-5.1)
[2019-10-17] MEDS: PANTOPRAZOLE 40 MG TABLET.DR. PO SCH (08:52)
[2019-10-17] MEDS: CLOPIDOGREL BISULFATE 75 MG TABLET PO SCH (08:52)
[2019-10-17] MEDS: ASPIRIN ENTERIC COATED 325 MG TABLET.DR. PO SCH (08:53)
[2019-10-17] MEDS: LACTOBACILLUS RHAMNOSUS GG 1 CAPSULE. PO SCH ×2 (08:53→20:48)
[2019-10-17] MEDS: METOPROLOL TART IMMED RELEASE 25 MG TABLET. PO SCH ×3 (08:54→22:32)
[2019-10-17] MEDS: IPRATRPIUM/ALBUTEROL 0.5/2.5MG 3 ML NEBU. NEB SCH ×4 (09:25→20:05)
[2019-10-17] MEDS ORDERED: FURO-69 PO (09:33)
--- NOTE | 2019-10-17 09:36 | PDOC ---
PULMONARY PROGRESS NOTES Subjective less soa Vitals Vital Signs Date Time Temp Pulse Resp B/P (MAP) Pulse Ox O2 Delivery O2 Flow Rate FiO2 10/17/19 09:26 97 Nasal Cannula 2.0 10/17/19 08:54 88 84/59 10/17/19 07:00 98.0 16 98.0 General: Alert, No acute distress Lungs: Other (decrease bases) Cardiovascular: S1 Abdomen: Soft Neuro Exam: Alert Extremities: No Edema Skin: Warm Labs Laboratory Tests Test 10/15/19 12:30 10/16/19 04:00 10/17/19 08:27 Sodium Level 141 mmol/L (136-145) 139 mmol/L (136-145) 141 mmol/L (136-145) Potassium Level 3.8 mmol/L (3.5-5.1) 3.8 mmol/L (3.5-5.1) 3.5 mmol/L (3.5-5.1) Chloride Level 106 mmol/L (98-107) 105 mmol/L (98-107) 105 mmol/L (98-107) Carbon Dioxide Level 25 mmol/L (21-32) 25 mmol/L (21-32) 23 mmol/L (21-32) Anion Gap 10 (6-14) 9 (6-14) 13 (6-14) Blood Urea Nitrogen 14 mg/dL (8-26) 14 mg/dL (8-26) 13 mg/dL (8-26) Creatinine 0.8 mg/dL (0.7-1.3) 0.8 mg/dL (0.7-1.3) 1.0 mg/dL (0.7-1.3) Estimated GFR (Cockcroft-Gault) 95.8 95.8 74.1 Glucose Level 141 mg/dL (70-99) 121 mg/dL (70-99) 154 mg/dL (70-99) Calcium Level 8.3 mg/dL (8.5-10.1) 8.4 mg/dL (8.5-10.1) 8.2 mg/dL (8.5-10.1) Magnesium Level 2.2 mg/dL (1.8-2.4) White Blood Count 9.5 x10^3/uL (4.0-11.0) Red Blood Count 3.88 x10^6/uL (4.30-5.70) Hemoglobin 11.6 g/dL (13.0-17.5) Hematocrit 35.0 % (39.0-53.0) Mean Corpuscular Volume 90 fL (79-100) Mean Corpuscular Hemoglobin 30 pg (25-35) Mean Corpuscular Hemoglobin Concent 33 g/dL (31-37) Red Cell Distribution Width 13.5 % (11.5-14.5) Platelet Count 259 x10^3/uL (140-400) Neutrophils (%) (Auto) 71 % (31-73) Lymphocytes (%) (Auto) 14 % (24-48) Monocytes (%) (Auto) 9 % (0-9) Eosinophils (%) (Auto) 5 % (0-3) Basophils (%) (Auto) 1 % (0-3) Neutrophils # (Auto) 6.7 x10^3/uL (1.8-7.7) Lymphocytes # (Auto) 1.4 x10^3/uL (1.0-4.8) Monocytes # (Auto) 0.9 x10^3/uL (0.0-1.1) Eosinophils # (Auto) 0.5 x10^3/uL (0.0-0.7) Basophils # (Auto) 0.1 x10^3/uL (0.0-0.2) BUN/Creatinine Ratio 18 (6-20) Total Bilirubin 0.5 mg/dL (0.2-1.0) Aspartate Amino Transf (AST/SGOT) 38 U/L (15-37) Alanine Aminotransferase (ALT/SGPT) 57 U/L (16-63) Alkaline Phosphatase 66 U/L (46-116) Total Protein 6.8 g/dL (6.4-8.2) Albumin 2.3 g/dL (3.4-5.0) Albumin/Globulin Ratio 0.5 (1.0-1.7) Procalcitonin < 0.10 ng/mL (0.00-0.10) Laboratory Tests Test 10/17/19 08:27 Sodium Level 141 mmol/L (136-145) Potassium Level 3.5 mmol/L (3.5-5.1) Chloride Level 105 mmol/L (98-107) Carbon Dioxide Level 23 mmol/L (21-32) Anion Gap 13 (6-14) Blood Urea Nitrogen 13 mg/dL (8-26) Creatinine 1.0 mg/dL (0.7-1.3) Estimated GFR (Cockcroft-Gault) 74.1 Glucose Level 154 mg/dL (70-99) Calcium Level 8.2 mg/dL (8.5-10.1) Medications Active Scripts Medications Dose Route/Sig Max Daily Dose Days Date Category Metoprolol Tartrate 25 Mg Tablet 12.5 Mg PO BID 09/28/19 Rx Aspirin Ec (Aspirin) 325 Mg Tablet.dr 325 Mg PO DAILYWBKFT 09/28/19 Rx Atorvastatin Calcium 40 Mg Tablet 40 Mg PO QHS 09/28/19 Rx Nitrostat (Nitroglycerin) 0.4 Mg Tab.subl 0.4 Mg SL PRN Q5MIN PRN 09/28/19 Rx Clopidogrel (Clopidogrel Bisulfate) 75 Mg Tablet 75 Mg PO DAILYWBKFT 09/28/[address] CHEST IMPRESSION: 1. Moderate to large right pleural effusion and tiny left pleural effusion along with pulmonary interstitial edema. 2. Bilateral multilobar pulmonary opacities are present. Given the presence of interstitial edema, these opacities most likely represent pulmonary alveolar edema. Superimposed multilobar pneumonia is not excluded. Follow-up CT imaging in 3 months is advised per Fleischner guidelines to document that these opacities resolve over time to exclude the possibility of an underlying opacity from nonmasslike malignancy or pneumonitis. 3. Mediastinal and hilar adenopathy. Impression . 1. Acute hypoxic respiratory failure secondary to acute on chronic diastolic heart failure and less likely aspiration pneumonia ( normal Procalcitonin) 2. The patient with 3-vessel coronary artery disease, status post stent initially to LAD on 09/27/2019 and now stent placed to RCA and circumflex. 3. Mild cardiomyopathy with an EF of 45%. 4. Possible chronic obstructive pulmonary disease. 5. Abnormal ct chest with diffuse alveolar infiltrates and effusions moderate on right, likely due to CHF Plan . 1. Discussed with the nurse. Continue present oxygen. 2. clinically better 3. diuresis., watch BP 4. Zosyn, will change to PO augmentin in am 5. Follow Cardiology recommendation. 6. Discussed with RN and the patient's . d/w DR Machcua 7. repeat cxr in JOSE Yepez MD Oct 17, 2019 09:36
--- NOTE | 2019-10-17 09:38 | PDOC ---
PROGRESS NOTES Chief Complaint Chief Complaint 1. 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 This time in for staged PCI/JAMAL to LCx/RCA as planned, stable 2. Mild acute systolic CHF: EF noted at 45%, appears compensated. lasix received yesterday 3. Possible aspiration: Infiltrates per CXR, notable for significant n/v post his STEMI at home per son. 4. Tobaccoism with likely COPD 5. HTN: BP marginally low currently 6. HLP 7. Mild valvular insufficiency: AI, TR/MR] 8. MOD to RT sided pleural effusion History of Present Illness History of Present Illness better after 2 doses lasix (20 wilder) yesterday SBP 80s, but MAP 70 Dw son over phone who interprets RN juan francisco to hold BB bec of low BP Procalcitonin < 10, so non infectious CT scan chest reviewed with pulmo, alveolar, interstitial edema with effusion PLAN: LAsix 20 PO to home when dc NEed to take home BP before taking BP meds and plasix - dw son 6 MW - dw Pulmo and RN and and son ff up PT OT today Vitals Vitals Vital Signs Date Time Temp Pulse Resp B/P (MAP) Pulse Ox O2 Delivery O2 Flow Rate FiO2 10/17/19 09:26 97 Nasal Cannula 2.0 10/17/19 08:54 88 84/59 10/17/19 07:00 98.0 16 98.0 Physical Exam General: Alert, Oriented X3, Cooperative, No acute distress Heart: Regular rate Lungs: Crackles Abdomen: Normal bowel sounds, Soft, No tenderness, No hepatosplenomegaly Extremities: No cyanosis Labs LABS Laboratory Tests Test 10/17/19 08:27 Sodium Level 141 mmol/L (136-145) Potassium Level 3.5 mmol/L (3.5-5.1) Chloride Level 105 mmol/L (98-107) Carbon Dioxide Level 23 mmol/L (21-32) Anion Gap 13 (6-14) Blood Urea Nitrogen 13 mg/dL (8-26) Creatinine 1.0 mg/dL (0.7-1.3) Estimated GFR (Cockcroft-Gault) 74.1 Glucose Level 154 mg/dL (70-99) Calcium Level 8.2 mg/dL (8.5-10.1) Review of Systems Review of Systems neg 14 pt/reviewed Comment Review of Relevant I have reviewed the following items bailee (where applicable) has been applied. Labs Laboratory Tests Test 10/15/19 12:30 10/16/19 04:00 10/17/19 08:27 Sodium Level 141 mmol/L (136-145) 139 mmol/L (136-145) 141 mmol/L (136-145) Potassium Level 3.8 mmol/L (3.5-5.1) 3.8 mmol/L (3.5-5.1) 3.5 mmol/L (3.5-5.1) Chloride Level 106 mmol/L (98-107) 105 mmol/L (98-107) 105 mmol/L (98-107) Carbon Dioxide Level 25 mmol/L (21-32) 25 mmol/L (21-32) 23 mmol/L (21-32) Anion Gap 10 (6-14) 9 (6-14) 13 (6-14) Blood Urea Nitrogen 14 mg/dL (8-26) 14 mg/dL (8-26) 13 mg/dL (8-26) Creatinine 0.8 mg/dL (0.7-1.3) 0.8 mg/dL (0.7-1.3) 1.0 mg/dL (0.7-1.3) Estimated GFR (Cockcroft-Gault) 95.8 95.8 74.1 Glucose Level 141 mg/dL (70-99) 121 mg/dL (70-99) 154 mg/dL (70-99) Calcium Level 8.3 mg/dL (8.5-10.1) 8.4 mg/dL (8.5-10.1) 8.2 mg/dL (8.5-10.1) Magnesium Level 2.2 mg/dL (1.8-2.4) White Blood Count 9.5 x10^3/uL (4.0-11.0) Red Blood Count 3.88 x10^6/uL (4.30-5.70) Hemoglobin 11.6 g/dL (13.0-17.5) Hematocrit 35.0 % (39.0-53.0) Mean Corpuscular Volume 90 fL (79-100) Mean Corpuscular Hemoglobin 30 pg (25-35) Mean Corpuscular Hemoglobin Concent 33 g/dL (31-37) Red Cell Distribution Width 13.5 % (11.5-14.5) Platelet Count 259 x10^3/uL (140-400) Neutrophils (%) (Auto) 71 % (31-73) Lymphocytes (%) (Auto) 14 % (24-48) Monocytes (%) (Auto) 9 % (0-9) Eosinophils (%) (Auto) 5 % (0-3) Basophils (%) (Auto) 1 % (0-3) Neutrophils # (Auto) 6.7 x10^3/uL (1.8-7.7) Lymphocytes # (Auto) 1.4 x10^3/uL (1.0-4.8) Monocytes # (Auto) 0.9 x10^3/uL (0.0-1.1) Eosinophils # (Auto) 0.5 x10^3/uL (0.0-0.7) Basophils # (Auto) 0.1 x10^3/uL (0.0-0.2) BUN/Creatinine Ratio 18 (6-20) Total Bilirubin 0.5 mg/dL (0.2-1.0) Aspartate Amino Transf (AST/SGOT) 38 U/L (15-37) Alanine Aminotransferase (ALT/SGPT) 57 U/L (16-63) Alkaline Phosphatase 66 U/L (46-116) Total Protein 6.8 g/dL (6.4-8.2) Albumin 2.3 g/dL (3.4-5.0) Albumin/Globulin Ratio 0.5 (1.0-1.7) Procalcitonin < 0.10 ng/mL (0.00-0.10) Laboratory Tests Test 10/17/19 08:27 Sodium Level 141 mmol/L (136-145) Potassium Level 3.5 mmol/L (3.5-5.1) Chloride Level 105 mmol/L (98-107) Carbon Dioxide Level 23 mmol/L (21-32) Anion Gap 13 (6-14) Blood Urea Nitrogen 13 mg/dL (8-26) Creatinine 1.0 mg/dL (0.7-1.3) Estimated GFR (Cockcroft-Gault) 74.1 Glucose Level 154 mg/dL (70-99) Calcium Level 8.2 mg/dL (8.5-10.1) Medications Current Medications Iodixanol (Visipaque 320) 100 ml STK-MED ONCE .ROUTE ; Start 10/14/19 at 07:32; Stop 10/14/19 at 07:32; Status DC Heparin Sodium/ Sodium Chloride 1,000 ml @ As Directed STK-MED ONCE .ROUTE ; Start 10/14/19 at 07:32; Stop 10/14/19 at 07:33; Status DC Lidocaine HCl (Xylocaine-Mpf 1% 2ml Vial) 2 ml STK-MED ONCE .ROUTE ; Start 10/14/19 at 07:32; Stop 10/14/19 at 07:33; Status DC Albuterol/ Ipratropium (Duoneb) 3 ml 1X ONCE NEB Last administered on 10/14/19at 08:06; Start 10/14/19 at 07:45; Stop 10/14/19 at 07:47; Status DC Fentanyl Citrate (Fentanyl 2ml Vial) 100 mcg STK-MED ONCE .ROUTE ; Start 10/14/19 at 07:57; Stop 10/14/19 at 07:57; Status DC Midazolam HCl (Versed) 2 mg STK-MED ONCE .ROUTE ; Start 10/14/19 at 07:57; Stop 10/14/19 at 07:58; Status DC Heparin Sodium (Porcine) (Heparin Sodium) 10,000 unit STK-MED ONCE .ROUTE ; Start 10/14/19 at 07:57; Stop 10/14/19 at 07:58; Status DC Verapamil HCl (Verapamil) 5 mg STK-MED ONCE .ROUTE ; Start 10/14/19 at 07:57; Stop 10/14/19 at 07:58; Status DC Nitroglycerin (Nitroglycerin) 200 mcg STK-MED ONCE .ROUTE ; Start 10/14/19 at 07:57; Stop 10/14/19 at 07:58; Status DC Nitroglycerin (Nitroglycerin) 200 mcg 1X ONCE IART Last administered on 10/14/19at 08:00; Start 10/14/19 at 08:00; Stop 10/14/19 at 08:03; Status DC Verapamil HCl (Verapamil) 2.5 mg 1X ONCE IART Last administered on 10/14/19at 08:47; Start 10/14/19 at 08:00; Stop 10/14/19 at 08:03; Status DC Heparin Sodium (Porcine) (Heparin Sodium) 2,500 unit 1X ONCE IART Last administered on 10/14/19at 08:00; Start 10/14/19 at 08:00; Stop 10/14/19 at 08:03; Status DC Heparin Sodium/ Sodium Chloride (HEPARIN for ARTERIAL LINE FLUSH) 1,000 unit 1X ONCE IART Last administered on 10/14/19at 08:00; Start 10/14/19 at 08:00; Stop 10/14/19 at 08:03; Status DC Heparin Sodium/ Sodium Chloride (HEPARIN for ARTERIAL LINE FLUSH) 1,000 unit 1X ONCE IART Last administered on 10/14/19at 08:00; Start 10/14/19 at 08:00; Stop 10/14/19 at 08:03; Status DC Midazolam HCl (Versed) 2 mg 1X ONCE IV Last administered on 10/14/19at 08:00; Start 10/14/19 at 08:00; Stop 10/14/19 at 08:03; Status DC Fentanyl Citrate (Fentanyl 2ml Vial) 100 mcg 1X ONCE IV Last administered on 10/14/19at 08:00; Start 10/14/19 at 08:00; Stop 10/14/19 at 08:03; Status DC Iodixanol (Visipaque 320) 100 ml 1X ONCE IART Last administered on 10/14/19at 08:00; Start 10/14/19 at 08:00; Stop 10/14/19 at 08:03; Status DC Lidocaine HCl (Xylocaine-Mpf 1% 2ml Vial) 2 ml 1X ONCE INJ Last administered on 10/14/19at 08:47; Start 10/14/19 at 08:00; Stop 10/14/19 at 08:03; Status DC Info (CONTRAST GIVEN -- Rx MONITORING) 1 each PRN DAILY PRN MC SEE COMMENTS; Start 10/14/19 at 08:15; Stop 10/16/19 at 08:14; Status DC Bivalirudin (Angiomax) 250 mg STK-MED ONCE IV ; Start 10/14/19 at 08:50; Stop 10/14/19 at 08:50; Status DC Bivalirudin (Angiomax) 250 mg 1X ONCE IV Last administered on 10/14/19at 09:09; Start 10/14/19 at 09:15; Stop 10/14/19 at 09:16; Status DC Sodium Chloride 1,000 ml @ 100 mls/hr Q10H IV ; Start 10/14/19 at 09:39; Stop 10/15/19 at 05:46; Status DC Aspirin (Ecotrin) 325 mg DAILYWBKFT PO Last administered on 10/17/19at 08:53; Start 10/15/19 at 08:00 Clopidogrel Bisulfate (Plavix) 75 mg DAILYWBKFT PO Last administered on 10/17/19at 08:52; Start 10/15/19 at 08:00 Atorvastatin Calcium (Lipitor) 40 mg QHS PO Last administered on 10/16/19at 20:49; Start 10/14/19 at 21:00 Metoprolol Tartrate (Lopressor) 12.5 mg BID PO Last administered on 10/16/19at 20:49; Start 10/14/19 at 21:00 Furosemide (Lasix) 20 mg 1X ONCE IVP Last administered on 10/14/19at 12:14; Start 10/14/19 at 12:00; Stop 10/14/19 at 12:01; Status DC Piperacillin Sod/ Tazobactam Sod (Zosyn Per Pharmacy) 1 each PRN DAILY PRN MC SEE COMMENTS; Start 10/14/19 at 12:45 Piperacillin Sod/ Tazobactam Sod 4.5 gm/Sodium Chloride 100 ml @ 200 mls/hr Q6HRS IV Last administered on 10/17/19at 06:18; Start 10/14/19 at 13:00 Albuterol/ Ipratropium (Duoneb) 3 ml RTQID NEB Last administered on 10/17/19at 09:25; Start 10/14/19 at 16:15 Lactobacillus Rhamnosus (Culturelle) 1 cap BID PO Last administered on 10/17/19at 08:53; Start 10/15/19 at 21:00 Acetaminophen (Tylenol) 500 mg PRN Q6HRS PRN PO MILD PAIN / TEMP; Start 10/16/19 at 08:15 Acetaminophen/ Codeine Phosphate (Tylenol #3) 1 tab PRN Q6HRS PRN PO MODERATE PAIN; Start 10/16/19 at 08:15 Ondansetron HCl (Zofran) 4 mg PRN Q6HRS PRN IVP NAUSEA/VOMITING; Start 10/16/19 at 08:15 Temazepam (Restoril) 7.5 mg PRN QHS PRN PO INSOMNIA; Start 10/16/19 at 08:15 Furosemide (Lasix) 20 mg 1X ONCE IVP Last administered on 10/16/19at 10:00; Start 10/16/19 at 09:45; Stop 10/16/19 at 09:46; Status DC Pantoprazole Sodium (Protonix) 40 mg DAILYAC PO Last administered on 10/17/19at 08:52; Start 10/16/19 at 10:00 Pantoprazole Sodium (Protonix) 40 mg 1X ONCE PO ; Start 10/16/19 at 09:15; Stop 10/16/19 at 09:14; Status DC Al Hydroxide/Mg Hydroxide (Mylanta Plus Xs) 30 ml PRN Q2HR PRN PO HEARTBURN / GAS; Start 10/16/19 at 09:15 Furosemide (Lasix) 20 mg 1X ONCE IVP Last administered on 10/16/19at 16:02; Start 10/16/19 at 16:00; Stop 10/16/19 at 16:01; Status DC Active Scripts Active Lasix (Furosemide) 20 Mg Tablet 1 Tab PO DAILY 30 Days Protonix (Pantoprazole Sodium) 40 Mg Tablet.dr 40 Mg PO DAILYAC 60 Days Metoprolol Tartrate 25 Mg Tablet 12.5 Mg PO BID Aspirin Ec (Aspirin) 325 Mg Tablet. 325 Mg PO DAILYWBKFT Atorvastatin Calcium 40 Mg Tablet 40 Mg PO QHS Nitrostat (Nitroglycerin) 0.4 Mg Tab.subl 0.4 Mg SL PRN Q5MIN PRN Clopidogrel (Clopidogrel Bisulfate) 75 Mg Tablet 75 Mg PO DAILYWBKFT Vitals/I & O Vital Sign - Last 24 Hours 10/16/19 10/16/19 10/16/19 10/16/19 11:00 11:55 15:00 16:03 Temp 97.3 97.4 97.3 97.4 Pulse 82 83 Resp 20 20 B/P (MAP) 96/68 (77) 87/65 (72) Pulse Ox 95 100 95 100 O2 Delivery Nasal Cannula Nasal Cannula Nasal Cannula Nasal Cannula O2 Flow Rate 2.0 2.0 2.0 2.0 10/16/19 10/16/19 10/16/19 10/16/19 19:08 20:00 20:00 20:49 Temp 98.1 98.1 Pulse 88 88 Resp 20 B/P (MAP) 104/70 (81) 104/70 Pulse Ox 97 O2 Delivery Nasal Cannula Nasal Cannula Nasal Cannula O2 Flow Rate 2.0 2.0 2.0 10/16/19 10/16/19 10/17/19 10/17/19 22:06 22:45 03:30 07:00 Temp 98.6 98.4 98.0 98.6 98.4 98.0 Pulse 86 86 88 Resp 20 20 16 B/P (MAP) 87/65 (72) 84/67 (73) 84/59 (67) Pulse Ox 100 97 96 96 O2 Delivery Nasal Cannula Nasal Cannula Nasal Cannula Nasal Cannula O2 Flow Rate 2.0 2.0 2.0 2.0 10/17/19 10/17/19 08:54 09:26 Pulse 88 B/P (MAP) 84/59 Pulse Ox 97 O2 Delivery Nasal Cannula O2 Flow Rate 2.0 Intake and Output 10/16/19 10/16/19 10/17/19 15:00 23:00 07:00 Intake Total 100 ml 200 ml Balance 100 ml 200 ml SHAHNAZ SUN MD Oct 17, 2019 09:38
--- NOTE | 2019-10-17 10:27 | NUR ---
Bedside Swallow Evaluation completed. Please refer to full report in intervention section for additional information. Impressions: Functional oropharyngeal swallow. Oral motor movements were WFL as was hyolaryngeal movement via palp. Pt appears at low risk of aspiration for regular diet and thin liquids. Recommendations: Continue regular diet w/ general swallow precautions (sitting upright, slow rate-discussed w/ pt and family). No additional ST services indicated at this time.
[2019-10-17 11:12] VITALS: BP 111/74
[2019-10-17 15:17] VITALS: BP 104/69
--- NOTE | 2019-10-17 16:18 | NUR ---
SW following pt. PT/OT recommends home independent. Pulmonary following pt. SW will be available as needed.
[2019-10-17 19:55] VITALS: BP 96/54
[2019-10-17] MEDS: ATORVASTATIN CALCIUM 40 MG TABLET. PO SCH (20:48)
[2019-10-17 22:31] VITALS: BP 107/72
[2019-10-18 02:13] VITALS: BP 82/61
[2019-10-18] MEDS: PIPERACILLIN/TAZOBACTAM 4.5 GM in IV NORMAL SALINE 100ML 100 ML IV SCH (05:34)
[2019-10-18] MEDS: PANTOPRAZOLE 40 MG TABLET.DR. PO SCH (05:56)
[2019-10-18 07:00] VITALS: BP 91/69
[2019-10-18] MEDS: IPRATRPIUM/ALBUTEROL 0.5/2.5MG 3 ML NEBU. NEB SCH (07:16)
--- NOTE | 2019-10-18 08:18 | RAD ---
EXAM: CHEST ONE VIEW. HISTORY: Pneumonia. COMPARISON: 10/15/2019. FINDINGS: A frontal view of the chest is obtained. Bilateral patchy interstitial and airspace infiltrates are worst in the right upper lobe. There is no clear interval change. There are small bilateral pleural effusions. There is no pneumothorax. The right hemidiaphragm is mildly elevated. The heart is not enlarged. IMPRESSION: 1. Stable multifocal pneumonia. Electronically signed by: Unique Toussaint MD (10/18/2019 8:15 AM) [facility]
[2019-10-18] MEDS: LACTOBACILLUS RHAMNOSUS GG 1 CAPSULE. PO SCH (08:46)
[2019-10-18] MEDS: ASPIRIN ENTERIC COATED 325 MG TABLET.DR. PO SCH (08:46)
[2019-10-18] MEDS: CLOPIDOGREL BISULFATE 75 MG TABLET PO SCH (08:46)
[2019-10-18 08:48] VITALS: BP 91/69
[2019-10-18] MEDS ORDERED: METOPROLOL TART IMMED RELEASE 25 MG TABLET. PO ONE (09:00)
[2019-10-18] MEDS ORDERED: AMOX1TAB58 PO (09:55)
--- NOTE | 2019-10-18 09:57 | PDOC3 ---
Discharge Summary Visit Information Date of Admission: Oct 14, 2019 Date of Discharge: Oct 18, 2019 Admitting Diagnosis Comment: 1. 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 This time in for staged PCI/JAMAL to LCx/RCA as planned, stable 2. Mild acute systolic CHF: EF noted at 45%, appears compensated. lasix received yesterday 3. Possible aspiration: Infiltrates per CXR, notable for significant n/v post his STEMI at home per son. 4. Tobaccoism with likely COPD 5. HTN: BP marginally low currently 6. HLP 7. Mild valvular insufficiency: AI, TR/MR] 8. MOD to RT sided pleural effusion Brief Hospital Course Allergies Allergies Coded Allergies Type Severity Reaction Last Updated Verified No Known Drug Allergies 09/27/19 No Vital Signs Vital Signs Date Time Temp Pulse Resp B/P (MAP) Pulse Ox O2 Delivery O2 Flow Rate FiO2 10/18/19 08:48 81 91/69 10/18/19 08:00 Room Air 10/18/19 07:17 96 10/18/19 07:00 97.9 18 97.9 10/17/19 09:26 2.0 Lab Results Laboratory Tests Test 10/17/19 08:27 Sodium Level 141 mmol/L (136-145) Potassium Level 3.5 mmol/L (3.5-5.1) Chloride Level 105 mmol/L (98-107) Carbon Dioxide Level 23 mmol/L (21-32) Anion Gap 13 (6-14) Blood Urea Nitrogen 13 mg/dL (8-26) Creatinine 1.0 mg/dL (0.7-1.3) Estimated GFR (Cockcroft-Gault) 74.1 Glucose Level 154 mg/dL (70-99) Calcium Level 8.2 mg/dL (8.5-10.1) Brief Hospital Course Mr. Sanchez is a 69 old male with limited mohawk admitted or staged PCI by cards, HE got a total 3 cardiac stents, done in 2 procedures, Post L:HC some CHF evidenced by pleural effusion and alveolar edema on CT chest, Procalcitonin less than 10, Dw pulmo, O k for home today PO alsix 20, bec SBP can be borderline low, no sxs with hypotension, MAP 60-70,. NO pT needs, NO O2 needs,. HOem today PO lasix 20 and PO augmentin and PPI PO BMP c.o PCP or cards on OP ff up Dw and RN wale and son over the phone who speaks mohawk dc 30 Discharge Information Condition at Discharge: Improved, Stable Follow Up: Weeks (cards october 2019) Disposition/Orders: D/C to Home Scheduled Amoxicillin/Potassium Clav (Augmentin 500-125 Tablet) 1 Each Tablet, 1 TAB PO BID for CAP for 10 Days, #20 Ref 0 Prescribed by: SHAHNAZ SUN on 10/18/19 0955 Aspirin (Aspirin Ec) 325 Mg Tablet., 325 MG PO DAILYWBKFT for cad, #90 Prescribed by: SHAHNAZ SUN on 09/28/19817 Last Taken: Unknown Dose on 10/13/19 Last Action: Reviewed on 10/14/19717 by DAX WYMAN Atorvastatin Calcium (Atorvastatin Calcium) 40 Mg Tablet, 40 MG PO QHS for lipids, #60 Prescribed by: SHAHNAZ SUN on 09/28/19817 Last Taken: Unknown Dose on 10/13/19 Last Action: Continued on 10/14/19941 by FAISAL DOWNS Clopidogrel Bisulfate (Clopidogrel) 75 Mg Tablet, 75 MG PO DAILYWBKFT for stemi, #60 Prescribed by: SHAHNAZ SUN on 09/28/19817 Last Taken: Unknown Dose on 10/13/19 Last Action: Reviewed on 10/14/19717 by DAX WYMAN Furosemide (Lasix) 20 Mg Tablet, 1 TAB PO DAILY for chf for 30 Days, #30 Ref 0 Prescribed by: SHAHNAZ SUN on 10/17/19 0933 Metoprolol Tartrate (Metoprolol Tartrate) 25 Mg Tablet, 12.5 MG PO BID for stemi , #60 Prescribed by: SHAHNAZ SUN on 09/28/19817 Last Taken: Unknown Dose on 10/13/19 Last Action: Continued on 10/14/19941 by FAISAL DOWNS Pantoprazole Sodium (Protonix ) 40 Mg Tablet., 40 MG PO DAILYAC for GERD for 60 Days, #60 Prescribed by: SHAHNAZ SUN on 10/16/19 0910 Scheduled PRN Nitroglycerin (Nitrostat) 0.4 Mg Tab.subl, 0.4 MG SL PRN Q5MIN PRN for CHEST PAIN, #120 Prescribed by: SHAHNAZ SUN on 09/28/19817 Last Action: Reviewed on 10/14/19717 by SHAHNAZ MENDEZ MD Oct 18, 2019 09:57
--- NOTE | 2019-10-18 10:21 | PDOC ---
PULMONARY PROGRESS NOTES Subjective Denies SOB or increased cough Remains on room air ready to D/C home today Vitals Vital Signs Date Time Temp Pulse Resp B/P (MAP) Pulse Ox O2 Delivery O2 Flow Rate FiO2 10/18/19 08:48 81 91/69 10/18/19 08:00 Room Air 10/18/19 07:17 96 10/18/19 07:00 97.9 18 97.9 10/17/19 09:26 2.0 ROS: No Nausea, No Chest Pain, No Abdominal Pain, No Increase Cough General: Alert, No acute distress Lungs: Other (crackles in LLB) Cardiovascular: S1 Abdomen: Soft Neuro Exam: Alert, Oriented Extremities: No Edema, Other Skin: Warm, Dry Labs Laboratory Tests Test 10/17/19 08:27 Sodium Level 141 mmol/L (136-145) Potassium Level 3.5 mmol/L (3.5-5.1) Chloride Level 105 mmol/L (98-107) Carbon Dioxide Level 23 mmol/L (21-32) Anion Gap 13 (6-14) Blood Urea Nitrogen 13 mg/dL (8-26) Creatinine 1.0 mg/dL (0.7-1.3) Estimated GFR (Cockcroft-Gault) 74.1 Glucose Level 154 mg/dL (70-99) Calcium Level 8.2 mg/dL (8.5-10.1) Medications Active Scripts Medications Dose Route/Sig Max Daily Dose Days Date Category Metoprolol Tartrate 25 Mg Tablet 12.5 Mg PO BID 09/28/19 Rx Aspirin Ec (Aspirin) 325 Mg Tablet.dr 325 Mg PO DAILYWBKFT 09/28/19 Rx Atorvastatin Calcium 40 Mg Tablet 40 Mg PO QHS 09/28/19 Rx Nitrostat (Nitroglycerin) 0.4 Mg Tab.subl 0.4 Mg SL PRN Q5MIN PRN 09/28/19 Rx Clopidogrel (Clopidogrel Bisulfate) 75 Mg Tablet 75 Mg PO DAILYWBKFT 09/28/[address] CHEST IMPRESSION: 1. Moderate to large right pleural effusion and tiny left pleural effusion along with pulmonary interstitial edema. 2. Bilateral multilobar pulmonary opacities are present. Given the presence of interstitial edema, these opacities most likely represent pulmonary alveolar edema. Superimposed multilobar pneumonia is not excluded. Follow-up CT imaging in 3 months is advised per Fleischner guidelines to document that these opacities resolve over time to exclude the possibility of an underlying opacity from nonmasslike malignancy or pneumonitis. 3. Mediastinal and hilar adenopathy. Impression . 1. Acute hypoxic respiratory failure secondary to acute on chronic diastolic heart failure and less likely aspiration pneumonia ( normal Procalcitonin) 2. The patient with 3-vessel coronary artery disease, status post stent initially to LAD on 09/27/2019 and now stent placed to RCA and circumflex. 3. Mild cardiomyopathy with an EF of 45%. 4. Possible chronic obstructive pulmonary disease. 5. Abnormal ct chest with diffuse alveolar infiltrates and effusions moderate on right, likely due to CHF CXR 09/2719 IMPRESSION: 1. Stable multifocal pneumonia. Plan . 1. 6 min walk , no need for supplemental oxygen 2. clinically stable 3. diuresis per cardiology 4. will changed to Augmentin 5. Follow Cardiology recommendation. 6. Discussed with JAYCE Baumann to D/C from our stand point Thank you for allow us to assist in this patients care JOSE BEATTY MD Oct 18, 2019 10:21
--- NOTE | 2019-10-18 10:34 | NUR ---
Discharge Note: [address] Discharge instructions and discharge home medications reviewed with Patient and a copy given. All questions have been answered and understanding verbalized.
--- NOTE | 2019-10-18 11:50 | PDOC ---
Provider Note Provider Note 10/18/2019 1130 Pt left before being seen. Discussed with RN. pt stable but with Bp at low end Clinically stable CAD with s/p PCI/stent. HFrEF- compensated Secondary prevention measures with DAPT. Cardiac rehab and smoking cessation Will change his BB to toprol 12.5 mg daily (Rx to be called in by RN) and low dose20 mg daily lasix. ACEi will be considered as an outpt pending his BP trend Follow up as scheduled. MOE COLINDRES PROGRAM EVALUATOR Oct 18, 2019 11:50
== END 2019-10-18 10:31 | disposition home or self-care (01) | DRG 246 ==
LOC: CCL 06:48 → 2 SOUTH 09:20 → OBSVTOIN 10-15 15:36
PROVIDERS: ADMIT Family Medicine; ATTEND Internal Medicine Cardiovascular Disease
PROC: 027135Z Dilation of Coronary Artery, Two Arteries with Two Drug-eluting Intraluminal Devices, Percutaneous Approach (ICD-10-PCS; principal; 2019-10-14)
PROC: 4A023N7 Measurement of Cardiac Sampling and Pressure, Left Heart, Percutaneous Approach (ICD-10-PCS; 2019-10-14)
PROC: B2111ZZ Fluoroscopy of Multiple Coronary Arteries using Low Osmolar Contrast (ICD-10-PCS; 2019-10-14)
DX: I25.10 Atherosclerotic heart disease of native coronary artery without angina pectoris (principal); J96.01 Acute respiratory failure with hypoxia; I50.43 Acute on chronic combined systolic (congestive) and diastolic (congestive) heart failure; I42.9 Cardiomyopathy, unspecified; E78.5 Hyperlipidemia, unspecified; F17.210 Nicotine dependence, cigarettes, uncomplicated; I11.0 Hypertensive heart disease with heart failure; I08.3 Combined rheumatic disorders of mitral, aortic and tricuspid valves; K21.9 Gastro-esophageal reflux disease without esophagitis; J44.9 Chronic obstructive pulmonary disease, unspecified; Z82.5 Family history of asthma and other chronic lower respiratory diseases; Z95.5 Presence of coronary angioplasty implant and graft; I25.2 Old myocardial infarction
CPT/HCPCS: 36415; 71045; 71250; 80048; 80053; 83735; 84145; 85025; 85027; 85610; 85730; 92928; 94618; 94640; 94760; 99152; 99153; C1725; C1769; C1874; C1887; C1892; G0378; G0379; J0583; J1644; J1940; J2250; J2543; J3010; J3490; J7620; Q9967; 92610